=== PATIENT | male | born 1955 | race Caucasian/White ===

== ENCOUNTER 2018-03-13 21:09 | Inpatient (IN) ==
[2018-03-13] MEDS ORDERED: Diphtheria/Tetanus/Pertussis Vaccine Inj 0.5 ML Syringe IM ONE (21:19)
[2018-03-13 21:29] LABS: Baso % (Auto) 0.3 % (0.0-2.0); Eos # (Auto) 0.1 th/mm3 (0.0-0.4); Eos % (Auto) 0.9 % (0.0-4.0); Hematocrit 42.9 % (39.0-51.0); Hemoglobin 14.8 gm/dL (13.0-17.0); Lymph # (Auto) 7.1 th/mm3 (1.0-4.8); Lymph % (Auto) 48.5 % (9.0-44.0); Mean Corpuscular HGB Conc 34.5 % (32.0-36.0); Mean Corpuscular Hemoglobin 32.9 pg (27.0-34.0); Mean Corpuscular Volume 95.4 fL (80.0-100.0); Mean Platelet Volume 7.1 fL (7.0-11.0); Mono # (Auto) 1.2 th/mm3 (0.0-0.9); Mono % (Auto) 8.5 % (0.0-8.0); Neut # (Auto) 6.1 th/mm3 (1.8-7.7); Neut % (Auto) 41.8 % (16.0-70.0); Platelet Count 233 th/mm3 (150-450); Red Blood Count 4.49 mil/mm3 (4.50-5.90); Red Cell Distribution Width 13.9 % (11.6-17.2); White Blood Count 14.5 th/mm3 (4.0-11.0)
[2018-03-13 21:40] LABS: Activated Partial Thrombo Time 24.7 sec (24.3-30.1); INR 1.2 Ratio; Prothrombin Time 12.1 sec (9.8-11.6)
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
[2018-03-13] MEDS ORDERED: Naloxone Inj 0.4 MG/ML Vial IV.PUSH PRN (21:44)
[2018-03-13] MEDS ORDERED: Bisacodyl 10 MG Supp RECTAL PRN (21:44)
[2018-03-13] MEDS ORDERED: Post-op Orders (for Pharmacy) OTHER ONE (21:44)
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
[2018-03-13 21:59] LABS: Lymphocytes 47 % (9-44); Monocytes 8 % (0-8); Platelet Estimate Normal (Normal); Platelet Morphology Normal (Normal); RBC Morphology Normal (Normal)
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
[2018-03-14] MEDS ORDERED: Etomidate Inj 40 MG/20 ML Vial IV.PUSH ONE (00:28)
[2018-03-14] MEDS ORDERED: Succinylcholine Inj 200 MG/10 ML Vial ONE (00:28)
[2018-03-14] MEDS ORDERED: Propofol 1000 mg/100 ml Inj 1,000 MG/100 ML BOTTLE ONE (02:58)
[2018-03-14 05:26] LABS: Baso % (Auto) 0.1 % (0.0-2.0); Eos % (Auto) 0.1 % (0.0-4.0); Hematocrit 35.8 % (39.0-51.0); Hemoglobin 12.4 gm/dL (13.0-17.0); Lymph # (Auto) 2.8 th/mm3 (1.0-4.8); Lymph % (Auto) 20.5 % (9.0-44.0); Mean Corpuscular HGB Conc 34.5 % (32.0-36.0); Mean Corpuscular Hemoglobin 32.8 pg (27.0-34.0); Mean Corpuscular Volume 94.9 fL (80.0-100.0); Mean Platelet Volume 7.6 fL (7.0-11.0); Mono # (Auto) 2.2 th/mm3 (0.0-0.9); Neut # (Auto) 8.5 th/mm3 (1.8-7.7); Neut % (Auto) 63.3 % (16.0-70.0); Platelet Count 204 th/mm3 (150-450); Red Blood Count 3.77 mil/mm3 (4.50-5.90); White Blood Count 13.5 th/mm3 (4.0-11.0)
[2018-03-14 05:46] LABS: Carbon Dioxide 23.8 meq/L (21.0-32.0); Potassium 4.2 meq/L (3.5-5.1)
[2018-03-14] MEDS ORDERED: Sodium Chlor 0.9% Inj 500 ML IV.SIG SCH (06:00)
[2018-03-14] MEDS: Sod Chloride 0.9% Inj 1,000 ML IV.CONT SCH ×3 (06:45→19:33)
[2018-03-14] MEDS ORDERED: Acetaminophen 325 MG Tablet PO PRN (07:01)
--- NOTE | 2018-03-14 10:02 | P.DCO ---
- Physical Therapy Order: Evaluate and treat, Improve ambulation, Strength and gait training - Home Health Nursing Order: Nursing assessment with vital signs - Certification I have seen patient Tomer Diaz on 03/14/18. My clinical findings support the need for the requested home health care services because: Limited mobility due to disease progression I certify that my clinical findings support that this patient is homebound because: Unsteady gait/balance
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
[2018-03-14] MEDS: Senna/Docusate Sodium 8.6/50 MG Tablet PO SCH ×2 (12:31→21:10)
[2018-03-14] MEDS: Famotidine 20 MG Tablet PO SCH ×2 (12:31→21:10)
[2018-03-14] MEDS: FLUoxetine 20 MG Capsule PO SCH (12:32)
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
[2018-03-14] MEDS ORDERED: traZODone 100 MG Tablet PO SCH (21:00)
[2018-03-14 21:23] VITALS: RESP 18
[2018-03-15] MEDS: Sod Chloride 0.9% Inj 1,000 ML IV.CONT SCH (02:46)
[2018-03-15 05:24] VITALS: O2SAT 96
[2018-03-15 08:14] VITALS: BP 149/96; PULSE 115; TEMP 98
[2018-03-15] MEDS: FLUoxetine 20 MG Capsule PO SCH (09:06)
[2018-03-15] MEDS: Senna/Docusate Sodium 8.6/50 MG Tablet PO SCH (09:07)
[2018-03-15] MEDS: Famotidine 20 MG Tablet PO SCH (09:07)
--- NOTE | 2018-03-15 21:43 | ECG ---
Date Performed: 03/14/2018 Time Performed: 11:53:19 PTAGE: 89 years EKG: Sinus rhythm NORMAL ECG INTERPRETATION BASED ON A DEFAULT AGE OF 80 YEARS NO PREVIOUS TRACING DOCTOR: Layo Holm Interpretating Date/Time 03/15/2018 21:42:00
== END 2018-03-15 15:00 | disposition home health service (06) ==
LOC: NEDA 21:09 → NEPI 21:09 → OBSVTOIN 03-14 05:54 → N06 03-14 07:35
PROVIDERS: ADMIT Surgery; ATTEND Surgery

== ENCOUNTER 2018-03-15 20:04 | Inpatient (IN) ==
[2018-03-15] MEDS ORDERED: Acetaminophen 325 MG Tablet PO ONE (20:32)
[2018-03-15] MEDS ORDERED: Sodium Chlor 0.9% Inj 500 ML IV.SIG SCH (21:00)
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
[2018-03-15 21:25] LABS: Baso % (Auto) 0.5 % (0.0-2.0); Eos % (Auto) 0.1 % (0.0-4.0); Hematocrit 29.1 % (39.0-51.0); Hemoglobin 10.3 gm/dL (13.0-17.0); Lymph # (Auto) 0.9 th/mm3 (1.0-4.8); Mean Corpuscular HGB Conc 35.3 % (32.0-36.0); Mean Corpuscular Hemoglobin 33.6 pg (27.0-34.0); Mean Corpuscular Volume 95.3 fL (80.0-100.0); Mean Platelet Volume 7.8 fL (7.0-11.0); Mono # (Auto) 0.9 th/mm3 (0.0-0.9); Mono % (Auto) 9.3 % (0.0-8.0); Neut # (Auto) 8.1 th/mm3 (1.8-7.7); Neut % (Auto) 81.1 % (16.0-70.0); Platelet Count 215 th/mm3 (150-450); Red Blood Count 3.05 mil/mm3 (4.50-5.90); Red Cell Distribution Width 14.1 % (11.6-17.2)
[2018-03-15 21:48] LABS: Albumin 3.8 g/dL (3.4-5.0); Anion Gap 11 meq/L (5-15); Aspartate Aminotransferase 26 U/L (15-37); Blood Urea Nitrogen 20 mg/dL (7-18); Calcium 8.7 mg/dL (8.5-10.1); Carbon Dioxide 22.8 meq/L (21.0-32.0); Chloride 101 meq/L (98-107); Glomerular Filtration Rate 36 mL/min (>89); Glucose,Random 149 mg/dL (74-106); Potassium 3.8 meq/L (3.5-5.1); Sodium 135 meq/L (136-145)
[2018-03-15 21:50] LABS: Alanine Aminotransferase 24 U/L (12-78)
[2018-03-15 21:58] LABS: Alkaline Phosphatase 49 U/L (45-117); Total Protein 7.3 g/dL (6.4-8.2)
[2018-03-16 02:09] LABS: Activated Partial Thrombo Time 19.5 sec (24.3-30.1); INR 1.2 Ratio; Prothrombin Time 11.9 sec (9.8-11.6)
[2018-03-16] MEDS ORDERED: LORazepam 1 MG Tablet PO PRN (19:29)
[2018-03-16] MEDS ORDERED: Aluminum/Magnesium/Simethacone Susp 30 ML UDC PO PRN (19:29)
[2018-03-17] MEDS ORDERED: Metoprolol Tartrate 50 MG Tablet PO SCH (09:00)
[2018-03-17 10:10] LABS: Calcium 8.9 mg/dL (8.5-10.1); Carbon Dioxide 25.3 meq/L (21.0-32.0); Potassium 3.3 meq/L (3.5-5.1)
[2018-03-17 10:13] LABS: Chol/HDL Ratio 2.8 Ratio; HDL Cholesterol 63.5 mg/dL (40.0-60.0)
[2018-03-17 10:19] LABS: Thyroid Stimulating Hormone 4.25 uIU/mL (0.358-3.740)
--- NOTE | 2018-03-17 11:27 | P.HPPSY ---
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 Express and informed consent means consent voluntarily given in writing, by a competent person, after sufficient explanation and disclosure of the subject matter involved to enable the person to make a knowing and willful decision without any element of force, fraud, deceit, duress, or other form of constraint or coercion. This person is 18 years of age or older, is not now known to be incompetent to consent to treatment with a guardian advocate, and does not have a health care surrogate or proxy currently making medical treatment decisions. I have found this person to be one of the following: [xxx] Competent to provide express and informed consent, as defined above, for voluntary admission to this facility and is competent to provide express and informed consent for treatment. He/she has the consistent capacity to make well reasoned, willful, and knowing decisions concerning his or her medical or mental health treatment. The person fully and consistently understands the purpose of the admission for examination/placement and is fully capable of personally exercising all rights assured under [place] Incompetent to provide express and informed consent to voluntary admission, and this is incompetent to provide express and informed consent to treatment. The person must be transferred to involuntary status and a petition for a guardian advocate filed with the Circuit Court. [] Refusing to provide express and informed consent to voluntary admission but is competent to provide express and informed consent for treatment. The person must be discharged or transferred to involuntary status. Form shall be completed within 24 hours of a person's arrival at the receiving facility and filed in the clinical record of each person: 1. Admitted on a voluntary basis 2. Permitted to provide express and informed consent to his/her own treatment 3. Allowed to transfer from involuntary to voluntary status 4. Prior to permitting a person to consent to his or her own treatment after having been previously found incompetent to consent to treatment. History of Present Illness Capacity: Has capacity History of Present Illness: Patient is a 63-year-old white male who comes to the ED voluntarily after suffering a fall a few days prior sustaining a laceration to the back of his head that was repaired there are also healing significant abrasions noted over the bridge of his nose on the dorsum of both hands. He also complained of severe depression that has been increasing over the past 2-3 weeks with multiple episodes of crying, being quite distraught, with initial middle and late insomnia, a.m. energy, decreased energy, decreased appetite with a 50-60 pound weight loss over the past year or so. There is marked anhedonia. There is decreased concentration and attention, decreased coping skills with increased irritability, though he denies voices or visions. He says he has occasional use of alcohol though he denies abusing it he denies any prior detox or rehab or legal issues related to alcohol. He states he occasionally uses marijuana that makes better. He denies other drug use. He denies other self- medication. The way he has had increased suicidal ideation related to this. At this time he would take the suicide pill if offered to him. There is significant trauma of his past history. Patient's was of alcohol abuse and committed suicide about 10 years ago patient's sister who is also alcoholic committed suicide about 2 years ago. Patient has seen a psychiatrist in the [place] area before he was hospitalized at least 3-4 times for depression about 2 years ago he did receive a course of ECT at a facility in [place] he said that did help him he is now being prescribed trazodone and Prozac and BuSpar by her PCP. He states is been in some type of communication with the ECT facility but does not remember the name of it at this time. He states she has 2 adult children who live in [place] that he has a good relationship with. He states the past 2 years she has lived with the family that he found on Juan's list he says they are okay he does have a pet dog in the house. He also states there is significant history of perhaps asthma stating that a few years ago he wound up in the hospital with a tracheostomy that he was essentially unconscious for almost a month. The cannot identify the specific cause of it. This admission blood alcohol level was negative there is been no urine toxicology received yet. At this time patient does meet criteria for further inpatient psychiatric hospitalization and assessment. I feel he does have capacity to be maintained on a voluntary basis. We will the counselor work with the patient to identify the prior ECT facility we need to contact them. Perhaps a transferred to that facility course of ECT might be the best choice for this man. Otherwise we will continue his medication per the EMR. Patient states she has been off his medication for at least 5 or 6 days a week. We will the hospitalist consult will us also. - Inpatient Certification I certify that the inpatient services were ordered in accordance with Medicare regulations governing the order. This includes certification that hospital inpatient services are reasonable and necessary and in the case of services not specified as inpatient-only under 42 CFR 419.22(n), that they are appropriately provided as inpatient services in accordance to with the 2-midnight benchmark under 43 CFR 412.3(e) I certify that inpatient psychiatric hospital services are medically necessary. Evaluation and treatment and/or diagnostic testing are expected to improve the patient's condition. The patient needs on a daily basis, active treatment furnished directly by or requiring the supervision of inpatient psychiatric facility personnel. Estimated Total Length of Stay (Days): 5 Plans for Post Hospital Care: Not yet determined Review of Systems History of asthma PMFSH - History History Provided By: Patient, Medical Record - Tobacco History Second Hand Smoke Exposure: No Tobacco Use In Past 30 Days: No Smoking Status: Former smoker Tobacco Type: Cigarettes - Alcohol History How Often Do You Have a Drink Containing Alcohol: 2 to 3 times a week - Substance Use History Substance History: Active Abuse - Substance Use Type Marijuana Status: Active Route Used: Inhalation Reason for Use: Calm Down - Travel History Recent Travel in the USA Within the Last 8 Weeks: No Recent Travel Out of the Country Within the Last 8 Weeks: No - Immunization History Tetanus Immunization: <5 Years Hx Influenza Vaccine This Season: No Quality Measures - Psychiatric History Psychological trauma history: Patient's committed suicide about 10 years ago patient's sister suicide about 2 years ago Violence risk to others in the last 6 months: Low Violence risk to self in the last 6 months: High risk for suicide - Substance Abuse History Drug or alcohol use in the past 12 months: Patient states occasional use of alcohol and marijuana - Patient Strengths Patient's strengths (minimum of 2): Patient verbal able access healthcare calm and cooperative Medications and Allergies Active Medications: Active Medications Acetaminophen (Tylenol) 650 mg PO Q4H PRN PRN Reason: Pain 1-5 or Temp >101F Al Hydrox/Mg Hydrox/Simethicone (Mag-Al Plus Susp Liq) 30 ml PO Q6H PRN PRN Reason: DYSPEPSIA Al Hydroxide/Mg Hydroxide (Milk Of Magnesia Liq) 30 ml PO DAILY PRN PRN Reason: CONSTIPATION Al Hydroxide/Mg Hydroxide (Milk Of Magnesia Liq) 30 ml PO Q12H PRN PRN Reason: Mild Constipation Apixaban (Eliquis) 5 mg PO DAILY [facility] Last Admin: 03/17/18 09:33 Dose: 5 mg Diphenhydramine HCl (Benadryl) 50 mg PO HS PRN PRN Reason: INSOMNIA Hydroxyzine HCl (Atarax) 50 mg PO Q6H PRN PRN Reason: ANXIETY Sodium Chloride (Ns Inj) 500 mls @ 0 mls/hr IV.SIG BOLUS [facility] Metoprolol Tartrate (Lopressor) 50 mg PO DAILY [facility] Last Admin: 03/17/18 09:33 Dose: 50 mg Non-Formulary Medication (Buspirone) 5 mg PO TID [facility] Non-Formulary Medication (Eliquis) 5 mg PO DAILY [facility] Non-Formulary Medication (Haldol) 2.5 mg PO DAILY [facility] Non-Formulary Medication (Lopressor) 50 mg PO DAILY [facility] Non-Formulary Medication (Prozac) 40 mg PO DAILY [facility] Non-Formulary Medication (Trazodone) 200 mg PO HS [facility] Non-Formulary Medication (Ventolin Hfa) 90 mcg PO Q3H PRN PRN Reason: Dyspnea Allergies Allergy/AdvReac Type Severity Reaction Status Date / Time No Known Allergies Allergy Unverified 03/15/18 20:18 Home Medications Medication Instructions Recorded Confirmed Type Eliquis 5 mg PO DAILY 03/16/18 03/16/18 History Haldol 2.5 mg PO DAILY 03/16/18 03/16/18 History Lopressor 50 mg PO DAILY 03/16/18 03/16/18 History Pepcid 20 mg PO BID 03/16/18 03/16/18 History Prozac 40 mg PO DAILY 03/16/18 03/16/18 History Ventolin HFA 90 mcg PO Q3H PRN 03/16/18 03/16/18 History buspirone 5 mg PO TID 03/16/18 03/16/18 History trazodone 200 mg PO HS 03/16/18 03/16/18 History Results - Labs CBC & Chem 7: 03/15/18 21:00 03/17/18 08:19 Labs: Laboratory Results - last 24 hr 03/17/18 08:19 Sodium 140 Potassium 3.3 L Chloride 104 Carbon Dioxide 25.3 Anion Gap 11 BUN 18 Creatinine 1.61 H Estimated GFR 44 L Random Glucose 125 H Calcium 8.9 Triglycerides 109 Cholesterol 178 LDL Cholesterol, Calc 93 HDL Cholesterol 63.5 H Cholesterol/HDL Ratio 2.80 TSH 4.250 H Exam Vital signs: Vital Signs 03/16/18 20:13 03/17/18 06:14 Temperature 98.3 F 98.1 F Pulse Rate 104 H 100 H Respiratory Rate 17 18 Blood Pressure 146/70 H 144/76 H Pulse Oximetry 96 95 Intake & Output 03/16/18 03/17/18 03/17/18 18:59 06:59 18:59 Weight 95.25 kg 86.7 kg Other: Weight On Admission 86.7 kg Narrative: Patient sitting in day room nurse. Present throughout session patient is in no acute distress, he is in no respiratory distress, no complaints of chest pain or abdominal pain. Patient moving all 4 extremities without difficulty deep healing abrasions noted over the bridge of his nose" torsion of right and left hand Mental Status Examination Appearance: Appropriate, Disheveled Consciousness: Alert Orientation: Person, Place, Date/Time, Situation Motor Activity: Normal gait Speech: Unremarkable ('Some sobbing hesitancy) Language: Adequate Fund of Knowledge: Adequate Attention and Concentration: Easily distracted Memory: Unremarkable Mood: Sad (And somewhat melancholic) Affect: Other (Increased range and intensity) Thought Process & Associations: Intact Thought Content: Appropriate Hallucination Type: None Delusion Type: None Suicidal Ideation: Yes (Patient would take the suicide pill) Suicidal Plan: Yes (Patient would take the suicide pill) Suicidal Intention: Yes Homicidal Ideation: No Homicidal Plan: No Homicidal Intention: No Insight: Fair Judgment: Poor Assessment and Plan - Assessment (1) Severe recurrent major depression without psychotic features Code(s): F33.2 - Major depressive disorder, recurrent severe without psychotic features Status: Acute - Plan Plan: Estimated LOS: [] days Patient remains severely depressed and suicidal continue medications per the med reconciliation since she has been off of them for 5-6 days. We will have counselor attempt to locate facility your patient had ECT Fel[place] Justification for Continued Inpatient Stay: At this time patient would decompensate a place to a lower level of care Discharge Planning: To be determined Request Healthcare Surrogate/Guardian Advocate?: No
--- NOTE | 2018-03-17 13:07 | ECG ---
Date Performed: 03/17/2018 Time Performed: 09:26:48 PTAGE: 63 years EKG: SINUS TACHYCARDIA NONSPECIFIC ST & T-WAVE ABNORMALITY ABNORMAL RHYTHM ECG PREVIOUS TRACING : 11/05/2016 15.29 DOCTOR: Surinder Shukla Interpretating Date/Time 03/17/2018 13:05:24
--- NOTE | 2018-03-17 14:24 | P.CON ---
History of Present Illness Service: Hospitalist Consult date: 03/17/18 Requesting Physician: Tomer Manzo Reason for Consult: Assist with ongoing medical management Primary Care Provider: No Primary Care Physician Chief Complaint: I passed out and I am depressed History of Present Illness: This is 63-year-old male with a past medical history significant for chronic migraines, hypertension, stage III chronic kidney disease, history of multi lobar Legionella pneumonia with ventilator dependent respiratory failure November 2016 with history of PEG tube placement and tracheostomy, history of right lower extremity DVT 2016 and depression who presented to [facility] ED for evaluation of head injury and suicidal ideation. Patient since been admitted to the inpatient psychiatric unit. Hospitalist services have been consulted to assist with ongoing medical management. Patient seen and examined. He is not a very good historian. Patient states that he fell 3 days ago and suffered a laceration to his head. Patient states he was treated at our facility as a DOEJOE. Patient states that he had no dizziness, chest pain, palpitations, nausea, vomiting or diaphoresis prior to falling. He denies tripping on anything. He states he has been eating and drinking his usual amount. He states he was walking across the room and the next thing he knew he woke up on the ground with an injury to his head. He said he was somewhat confused after he woke but denies any tongue biting or bowel or bladder incontinence. He does not have a history of seizure disorder. He denies any alcohol consumption or drug use prior to the fall. He denies any recent change in his medications. He does not know how long he was down for. At present, he denies any complaints of chest pain. He reports chronic shortness of breath associated with asthma which is unchanged. He states he has had several episodes of loose stools 3 yesterday and 2 so far today. He denies any recent antibiotic use. He denies any dysuria. Review of Systems All other systems reviewed negative except as stated in HPI PMFSH - History History Provided By: Patient, Medical Record - Medical History Medical History: Medical History (Last Updated 03/17/18 @ 14:00 by Suni Melton) Chronic kidney disease Depression History of DVT (deep vein thrombosis) Hx of migraines Legionella pneumonia Paroxysmal atrial fibrillation - Surgical History Surgical History: Surgical History (Last Updated 03/17/18 @ 13:59 by Suni Melton) Hx of tracheostomy S/P percutaneous endoscopic gastrostomy (PEG) tube placement - Family History Family History: Family History (Last Updated 03/17/18 @ 14:00 by Suni Melton) Other No significant family history - Tobacco History Second Hand Smoke Exposure: No Tobacco Use In Past 30 Days: No Smoking Status: Former smoker Tobacco Type: Cigarettes - Alcohol History How Often Do You Have a Drink Containing Alcohol: 2 to 3 times a week - Substance Use History Substance History: Active Abuse - Substance Use Type Marijuana Status: Active Route Used: Inhalation Reason for Use: Calm Down - Travel History Recent Travel in the [place] Within the Last 8 Weeks: No Recent Travel Out of the Country Within the Last 8 Weeks: No - Immunization History Tetanus Immunization: <5 Years Hx Influenza Vaccine This Season: No Medications and Allergies Active Medications: Active Medications Acetaminophen (Tylenol) 650 mg PO Q4H PRN PRN Reason: Pain 1-5 or Temp >101F Al Hydrox/Mg Hydrox/Simethicone (Mag-Al Plus Susp Liq) 30 ml PO Q6H PRN PRN Reason: DYSPEPSIA Al Hydroxide/Mg Hydroxide (Milk Of Magnesia Liq) 30 ml PO DAILY PRN PRN Reason: CONSTIPATION Al Hydroxide/Mg Hydroxide (Milk Of Magnesia Liq) 30 ml PO Q12H PRN PRN Reason: Mild Constipation Apixaban (Eliquis) 5 mg PO DAILY [facility] Last Admin: 03/17/18 09:33 Dose: 5 mg Diphenhydramine HCl (Benadryl) 50 mg PO HS PRN PRN Reason: INSOMNIA Hydroxyzine HCl (Atarax) 50 mg PO Q6H PRN PRN Reason: ANXIETY Sodium Chloride (Ns Inj) 500 mls @ 0 mls/hr IV.SIG BOLUS [facility] Metoprolol Tartrate (Lopressor) 50 mg PO DAILY [facility] Last Admin: 03/17/18 09:33 Dose: 50 mg Non-Formulary Medication (Buspirone) 5 mg PO TID [facility] Non-Formulary Medication (Eliquis) 5 mg PO DAILY [facility] Non-Formulary Medication (Haldol) 2.5 mg PO DAILY [facility] Non-Formulary Medication (Lopressor) 50 mg PO DAILY [facility] Non-Formulary Medication (Prozac) 40 mg PO DAILY [facility] Non-Formulary Medication (Trazodone) 200 mg PO HS [facility] Non-Formulary Medication (Ventolin Hfa) 90 mcg PO Q3H PRN PRN Reason: Dyspnea Allergies Allergy/AdvReac Type Severity Reaction Status Date / Time No Known Allergies Allergy Unverified 03/15/18 20:18 Home Medications Medication Instructions Recorded Confirmed Type Eliquis 5 mg PO DAILY 03/16/18 03/16/18 History Haldol 2.5 mg PO DAILY 03/16/18 03/16/18 History Lopressor 50 mg PO DAILY 03/16/18 03/16/18 History Pepcid 20 mg PO BID 03/16/18 03/16/18 History Prozac 40 mg PO DAILY 03/16/18 03/16/18 History Ventolin HFA 90 mcg PO Q3H PRN 03/16/18 03/16/18 History buspirone 5 mg PO TID 03/16/18 03/16/18 History trazodone 200 mg PO HS 03/16/18 03/16/18 History Physical Exam Vital signs: Vital Signs 03/16/18 20:13 03/17/18 06:14 Temperature 98.3 F 98.1 F Pulse Rate 104 H 100 H Respiratory Rate 17 18 Blood Pressure 146/70 H 144/76 H Pulse Oximetry 96 95 Intake & Output 03/16/18 03/17/18 03/17/18 18:59 06:59 18:59 Intake Total 360 / 360 Balance 360 / 360 Weight 95.25 kg 86.7 kg Intake: Oral 360 / 360 Other: Weight On Admission 86.7 kg Narrative: GENERAL: Well-developed well-nourished male patient in no acute distress. Awake and alert. Anxious appearing. SKIN: Warm and dry. HEAD: Normocephalic. + 7cm scalp laceration noted to the back of the head with lucy in place. +dried blood. Abrasions to both hands as well as the nose. EYES: Pupils equal and round. No scleral icterus. No injection or drainage. ENT: No nasal bleeding or discharge. Mucous membranes pink and moist. NECK: Trachea midline. CARDIOVASCULAR: Regular rate and rhythm. RESPIRATORY: No accessory muscle use. Mild wheezing noted in the right lower lung field. Breath sounds equal bilaterally. GASTROINTESTINAL: Abdomen soft, non-tender, nondistended. Hepatic and splenic margins not palpable. MUSCULOSKELETAL: Extremities without clubbing, cyanosis, or edema. No obvious deformities. NEUROLOGICAL: Awake and alert. No obvious cranial nerve deficits. Motor grossly within normal limits. Able to move all extremity spontaneously. Normal speech. PSYCHIATRIC: Depressed affect. Anxious appearing. Assessment and Plan - Plan 63-year-old male with a past medical history significant for chronic migraines, hypertension, stage III chronic kidney disease, history of multi lobar Legionella pneumonia with ventilator dependent respiratory failure November 2016 with history of PEG tube placement and tracheostomy, history of right lower extremity DVT 2016 and depression who presented to [facility] ED for evaluation of head injury and suicidal ideation. Depression Suicidal ideation -Management per psychiatric team Syncopal episode Head laceration CT head obtained in the ED shows no evidence of acute intracranial pathology -We will obtain a 2D echocardiogram -Check orthostatic blood pressure measurements -obtain carotid US -obtain EEG -obtain UDS -monitor HR -recommend holter monitor as outpatient -fall and seizure precautions -PT eval/tx Hx of paroxysmal atrial fibrillation Systolic CHF, not in acute exacerbation. Echo 2016 with EF 45-50% Hypertension Patient has no cardiac complaints -Resume on home dose of Lopressor and Eliquis -Continue to monitor heart rate and BP -monitor for signs of fluid overload CKD, stage 3 Creatinine trending down Last Cr in system was 1.21 02/09/17 Renal US unremarkable 2016 -encourage fluid intake -obtain UA -Avoid nephrotoxic agents -Monitor kidney function Hypokalemia K 3.3 -P.o. repletion ordered -Obtain mag level -Repeat BMP in a.m. Asthma, mild exacerbation -DuoNeb scheduled every 6 hours while awake 2 days -Ventolin inhaler as needed -monitor respiratory status Diarrhea -Stool studies and C. difficile ordered -monitor stooling History of multi lobar Legionella pneumonia, sepsis, VDRF with history of PEG tube placement and tracheostomy status post reversal History of right lower extremity DVT 2017 -monitor DVT prophylaxis -Patient is ambulatory Code Status: FULL Discussed Condition With: patient, nursing staff, Dr. King
[2018-03-17 15:28] LABS: Hemoglobin A1c 5.1 % (4.3-6.0)
--- NOTE | 2018-03-17 16:27 | US ---
EXAM DATE: 03/17/2018 4:22 PM EDT AGE/SEX: 63 years / Male INDICATIONS: Syncope. CLINICAL DATA: This is the patient's subsequent encounter. Patient reports that signs and symptoms h ave been present for 1 day and indicates a pain score of 0/10. MEDICAL/SURGICAL HISTORY: . Chronic kidney disease. Depression. Deep vein thrombosis. Migraines . Pneumonia. Atrial fibrillation. . Tracheostomy. Peg tube placement. COMPARISON: No prior exams available for comparison. VELOCITY PARAMETERS: ICA/CCA Ratio: Right 0.9 , Left 1.1 ICA: Right 64.6 cm/sec, Left 77.6 cm/sec CCA: Right 73.7 cm/sec, Left 72.4 cm/sec ECA: Right 65.9 cm/sec, Left 69.8 cm/sec Vertebral: Right 55.9 cm/sec antegrade, Left 55.7 cm/sec antegrade FINDINGS: Right Carotid: No significant plaque is visualized.The waveforms are within normal limits. Left Carotid: No significant plaque is visualized. The waveforms are within normal limits. Other: None. CONCLUSION: 1. Right Internal Carotid Artery: No evidence of concerning or significant stenosis. Mild plaque is identified within the region of the carotid bulb. 2. Left Internal Carotid Artery: No evidence of significant stenosis. Mild plaque is identified with in the region of the carotid bulb. Electronically signed by: Lida Montes MD 03/17/2018 4:25 PM EDT
[2018-03-17] MEDS: FLUoxetine 20 MG Capsule PO SCH (18:03)
[2018-03-17] MEDS: traZODone 100 MG Tablet PO SCH (20:33)
[2018-03-18] MEDS: FLUoxetine 20 MG Capsule PO SCH (08:45)
[2018-03-18] MEDS: Haloperidol 1 MG Tablet PO SCH (08:46)
[2018-03-18 08:55] LABS: Calcium 8.5 mg/dL (8.5-10.1); Carbon Dioxide 27.3 meq/L (21.0-32.0); Potassium 3.5 meq/L (3.5-5.1)
[2018-03-18] MEDS ORDERED: Metoprolol Tartrate 50 MG Tablet PO SCH (09:00)
--- NOTE | 2018-03-18 11:04 | P.PN ---
Subjective Interval history: Follow-up on patient with syncopal episode, depression, suicidal ideation. Patient seen and examined. Patient complains of ongoing shortness of breath. He is not in any respiratory distress. He denies any cough or sputum production. He denies any headache or vision changes. He does report some dizziness with standing. He denies any chest pain. He denies any nausea, vomiting or abdominal pain. He states his diarrhea has resolved. Physical Exam Vital signs: Vital Signs 03/17/18 17:48 03/17/18 18:31 03/18/18 05:25 Temperature 98 F 98.4 F Pulse Rate 81 76 77 Respiratory Rate 18 17 Blood Pressure 145/63 H 105/60 Pulse Oximetry 94 L 94 L Intake & Output 03/17/18 03/18/18 03/18/18 18:59 06:59 18:59 Intake Total 600 / 600 Balance 600 / 600 Weight 91.2 kg Intake: Oral 600 / 600 Narrative: GENERAL: Well-developed well-nourished male patient in no acute distress. Awake and alert. Sitting in the day room watching TV. Appears comfortable. SKIN: Warm and dry. HEAD: Normocephalic. + 7cm scalp laceration noted to the back of the head with lucy in place. +dried blood. Abrasions to both hands as well as the nose. EYES: Pupils equal and round. No scleral icterus. No injection or drainage. ENT: No nasal bleeding or discharge. Mucous membranes pink and moist. NECK: Trachea midline. CARDIOVASCULAR: Regular rate and rhythm. RESPIRATORY: No accessory muscle use. Good air entry. Mild wheezing noted in the right lower lung field. GASTROINTESTINAL: Abdomen soft, non-tender, nondistended. +BS. MUSCULOSKELETAL: Extremities without clubbing, cyanosis, or edema. No obvious deformities. NEUROLOGICAL: Awake and alert. No obvious cranial nerve deficits. Motor grossly within normal limits. Able to move all extremity spontaneously. Normal speech. PSYCHIATRIC: Depressed affect. Calm and cooperative. Results - Labs CBC & Chem 7: 03/15/18 21:00 03/18/18 07:32 Laboratory Results - last 24 hr 03/17/18 03/17/18 03/18/18 08:19 08:19 07:32 Sodium 141 Potassium 3.5 Chloride 105 Carbon Dioxide 27.3 Anion Gap 9 BUN 16 Creatinine 1.49 H Estimated GFR 48 L Random Glucose 91 Hemoglobin A1c 5.1 Calcium 8.5 Magnesium 2.0 - Imaging Impressions Carotid Doppler Study 03/17/18 00:00 CONCLUSION: 1. Right Internal Carotid Artery: No evidence of concerning or significant stenosis. Mild plaque is identified within the region of the carotid bulb. 2. Left Internal Carotid Artery: No evidence of significant stenosis. Mild plaque is identified within the region of the carotid bulb. Assessment and Plan - Plan 63-year-old male with a past medical history significant for chronic migraines, hypertension, stage III chronic kidney disease, history of multi lobar Legionella pneumonia with ventilator dependent respiratory failure November 2016 with history of PEG tube placement and tracheostomy, history of right lower extremity DVT 2016 and depression who presented to [facility] ED for evaluation of head injury and suicidal ideation. Depression Suicidal ideation -Management per psychiatric team Syncopal episode Head laceration s/p staple closure CT head obtained in the ED shows no evidence of acute intracranial pathology Doppler shows only mild plaque -We will obtain a 2D echocardiogram -Patient c/o dizziness with standing. Hypotensive this am. Orthostatic blood pressure measurements ordered yesterday not done. -EEG pending -obtain UDS - ordered yesterday, not done -recommend holter monitor as outpatient -fall and seizure precautions -PT eval/tx Hx of paroxysmal atrial fibrillation Systolic CHF, not in acute exacerbation. Echo 2016 with EF 45-50% Hypertension, now hypotensive Patient has no cardiac complaints -Decreased dose of Lopressor 12.5 mg twice daily with hold parameters -continue patient on home dose of Eliquis -Continue to monitor heart rate and BP CKD, stage 3 Creatinine trending down Last Cr in system was 1.21 02/09/17 Renal US unremarkable 2016 -creatinine trending down -encourage fluid intake -obtain UA - specimen not sent -Avoid nephrotoxic agents -Monitor kidney function Hypokalemia K 3.3 -resolved s/p repletion -monitor K level as indicated Asthma, mild exacerbation -Obtain CXR -DuoNeb scheduled every 4 hours while awake 2 days and as needed Albuterol Nebs -Ventolin inhaler as needed -monitor respiratory status Diarrhea -Stool studies and C. difficile ordered - no specimen sent, diarrhea resolved -monitor stooling History of multi lobar Legionella pneumonia, sepsis, VDRF with history of PEG tube placement and tracheostomy status post reversal History of right lower extremity DVT 2016 -monitor DVT prophylaxis -Patient is ambulatory Code Status: FULL Discussed Condition With: patient, nursing staff, Dr. Dickerson
--- NOTE | 2018-03-18 11:55 | P.TTN ---
- Patient Problems Problems: 1. Discharge planning 2. Medication compliance 3. Knowledge deficit 4. Lack of coping skills - Progress Toward Goals Provider Present: Dr. Sugey Manzo Provider Input: Patient is new admission Psychiatric Counselors Present: Other Psychiatric Therapist Input: Patient is new admission Group Spec/RT/OT/MELENDEZ Present: BENTON Sidhu Group Spec/RT/OT/MELENDEZ Input: Patient is new admission - Discharge Plan May need placement - Documentation Teaching Recipient: Patient
--- NOTE | 2018-03-18 14:43 | MG ---
cc: Tania Cash MD EEG NUMBER: [id number] REFERRING: Referred by BREONNA Melton INDICATION: In room 2509-B with photic stimulation. Awake, drowsy asleep study. CT negative. A 63-year-old man with a history of head injury confused, depressed, suicidal, has lucy, history of depression, right lower extremity DVT, migraines, pneumonia, paroxysmal atrial fibrillation, tracheostomy, former smoker. MEDICATIONS: 1. Benadryl. 2. Prozac 3. Trazodone. DESCRIPTION OF RECORD: There is overall 8 Hz background 20-60 microvolts. Quite a bit of artifact in the frontal kirk. EKG is artifactual as well. The patient has a lot of movement, not following instruction of the technicians. May be some attenuation as the patient falls asleep then arouses and then has a fairly normal background again. Photic stimulation shows a posterior driving response. No evidence of any epileptic activity. IMPRESSION: Overall, normal appearing study without any epileptiform features. Clinical correlation. Tania Cash MD DF/ct , 02:18 PM , 02:24 PM
--- NOTE | 2018-03-18 15:53 | ECHRPT ---
Indication: Shortness of Breath CONCLUSIONS Normal left ventricular size. Wall thickness is normal. The left ventricular systolic function is normal with an estimated ejection fraction in the range of 55-60%. No regional wall motion abnormalities are present. Mild mitral valve leaflet prolapse. Trace mitral valve regurgitation. There is trace tricuspid valve regurgitation. The estimated pulmonary arterial pressure is 40 mmHg. BP: / HR: Rhythm: MEASUREMENTS (Male / Female) Normal Values Technical Quality:Good 2D ECHO LV Diastolic Diameter PLAX 4.5 cm 4.2 - 5.9 / 3.9 - 5.3 cm LV Systolic Diameter PLAX 3.4 cm IVS Diastolic Thickness 1.1 cm 0.6 - 1.0 / 0.6 - 0.9 cm LVPW Diastolic Thickness 1.1 cm 0.6 - 1.0 / 0.6 - 0.9 cm LV Relative Wall Thickness 0.5 RV Internal Dim ED PLAX 3.2 cm LVOT Diameter 2.2 cm Aortic Root Diameter 3.3 cm LA Systolic Diameter LX 4.0 cm 3.0 - 4.0 / 2.7 - 3.8 cm M-MODE AV Cusp Separation MM 2.0 cm DOPPLER AV Peak Velocity 136.0 cm/s AV Peak Gradient 7.4 mmHg LVOT Peak Velocity 102.0 cm/s LVOT Peak Gradient 4.2 mmHg AV Area Cont Eq pk 2.9 cm Mitral E Point Velocity 80.5 cm/s Mitral A Point Velocity 60.2 cm/s Mitral E to A Ratio 1.3 LV E' Lateral Velocity 14.2 cm/s Mitral E to LV E' Lateral Ratio 5.7 LV E' Septal Velocity 12.0 cm/s Mitral E to LV E' Septal Ratio 6.7 TR Peak Velocity 311.0 cm/s TR Peak Gradient 38.7 mmHg Right Atrial Pressure 10.0 mmHg Pulmonary Artery Systolic Pressu 48.7 mmHg Right Ventricular Systolic Press 48.7 mmHg PV Peak Velocity 65.6 cm/s PV Peak Gradient 1.7 mmHg FINDINGS LEFT VENTRICLE Normal left ventricular size. Wall thickness is normal. The left ventricular systolic function is normal with an estimated ejection fraction in the range of 55-60%. No regional wall motion abnormalities are present. RIGHT VENTRICLE Normal right ventricular size and systolic function. LEFT ATRIUM The left atrial size is normal. RIGHT ATRIUM The right atrial size is normal. ATRIAL SEPTUM Normal atrial septal thickness without atrial level shunting by limited color doppler interrogation. AORTA The aortic root and proximal ascending aorta are normal in size on limited imaging. MITRAL VALVE Mild mitral valve leaflet prolapse. Trace mitral valve regurgitation. AORTIC VALVE Trileaflet aortic valve. No aortic valve stenosis or regurgitation. TRICUSPID VALVE There is trace tricuspid valve regurgitation. The estimated pulmonary arterial pressure is 40 mmHg. PULMONARY VALVE Trivial pulmonary valve regurgitation. VESSELS The inferior vena cava is normal in size. PERICARDIUM No pericardial effusion. Layo Holm MD (Electronically Signed) Final Date:18 March 2018 15:52
--- NOTE | 2018-03-18 16:16 | XR ---
EXAM DATE: 03/18/2018 4:04 PM EDT AGE/SEX: 63 years / Male INDICATIONS: Dyspnea CLINICAL DATA: This is the patient's initial encounter. Patient reports that signs and symptoms have been present for 3 days and indicates a pain score of 0/10. MEDICAL/SURGICAL HISTORY: Hypertension. asthma None. COMPARISON: [facility] [place] 02/09/2017. . FINDINGS: AP view of the thorax demonstrates a curvilinear area of parenchymal density involving the right lowe r lobe. This corresponds in location with an area of previously noted confluent airspace opacity and likely represents residual scar. The lungs are otherwise clear. Heart size is normal. Pulmonary vascu lature is normal. No evidence of pneumothorax. CONCLUSION: No evidence of acute cardiopulmonary disease. Parenchymal scarring identified within the right lower lobe. Electronically signed by: Lida Montes MD 03/18/2018 4:14 PM EDT
--- NOTE | 2018-03-18 16:29 | P.PNPSY ---
Subjective Remarks: Patient seen today in day room with floor staff, chart reviewed, patient compliant medications. Patient states sleep is still somewhat disturbed, still acknowledges suicidal ideation but is able contract to do no harm. Is making somewhat better eye contact today somewhat more reactive. Though this may be a response just to the milieu and not the medication for now continue treatment Review of Systems All other systems reviewed negative except as stated in HPI Mental Status Examination Appearance: Appropriate, Disheveled Consciousness: Alert Orientation: Person, Place, Date/Time, Situation Motor Activity: Normal gait Speech: Unremarkable ('Some sobbing hesitancy) Language: Adequate Fund of Knowledge: Adequate Attention and Concentration: Easily distracted Memory: Unremarkable Mood: Sad (And somewhat melancholic) Affect: Other (Increased range and intensity) Thought Process & Associations: Intact Thought Content: Appropriate Hallucination Type: None Delusion Type: None Suicidal Ideation: Yes (Patient would take the suicide pill) Suicidal Plan: Yes (Patient would take the suicide pill) Suicidal Intention: Yes Homicidal Ideation: No Homicidal Plan: No Homicidal Intention: No Insight: Fair Judgment: Poor Assessment and Plan - Assessment (1) Severe recurrent major depression without psychotic features Code(s): F33.2 - Major depressive disorder, recurrent severe without psychotic features Status: Acute - Plan Plan: Patient remains depressed and suicidal, compliant medications, her affect is somewhat improved Justification for Continued Inpatient Stay: At this time patient would decompensate a place to a lower level of care Discharge Planning: To be determined Request Healthcare Surrogate/Guardian Advocate?: No
[2018-03-18] MEDS: traZODone 100 MG Tablet PO SCH (20:06)
[2018-03-19] MEDS: Metoprolol Tartrate 50 MG Tablet PO SCH ×2 (09:02→20:47)
[2018-03-19] MEDS: Haloperidol 1 MG Tablet PO SCH (09:04)
[2018-03-19] MEDS: FLUoxetine 20 MG Capsule PO SCH (09:05)
[2018-03-19] MEDS: Acetaminophen 325 MG Tablet PO PRN (10:10)
--- NOTE | 2018-03-19 11:43 | P.PNPSY ---
Subjective Remarks: Patient seen in day room with floor staff, chart reviewed, patient compliant medication. Patient's mood and affect seem to be improving somewhat still voices suicidal ideation and anxiety that may be somewhat contingent upon placement. He states he does not know where he will go when he leaves here. Though he is willing to consider an JAIL or some similar placement with eyes and abrasions on his nose and both upper extremities are healing of the scalp laceration is healing well no signs of infection or drainage we will increase BuSpar from 5 mg 3 times daily to 10 mg 3 times daily Review of Systems All other systems reviewed negative except as stated in HPI Mental Status Examination Appearance: Appropriate, Disheveled Consciousness: Alert Orientation: Person, Place, Date/Time, Situation Motor Activity: Normal gait Speech: Unremarkable ('Some sobbing hesitancy) Language: Adequate Fund of Knowledge: Adequate Attention and Concentration: Easily distracted Memory: Unremarkable Mood: Sad (And somewhat melancholic) Affect: Other (Increased range and intensity) Thought Process & Associations: Intact Thought Content: Appropriate Hallucination Type: None Delusion Type: None Suicidal Ideation: Yes (Patient would take the suicide pill) Suicidal Plan: Yes (Patient would take the suicide pill) Suicidal Intention: Yes Homicidal Ideation: No Homicidal Plan: No Homicidal Intention: No Insight: Fair Judgment: Poor Assessment and Plan - Assessment (1) Severe recurrent major depression without psychotic features Code(s): F33.2 - Major depressive disorder, recurrent severe without psychotic features Status: Acute - Plan Plan: Patient's depression persists but seems to be lifting somewhat though he still voices suicidality. Placement continues to be a focus of anxiety for Justification for Continued Inpatient Stay: At this time patient would decompensate a place to a lower level of care Discharge Planning: To be determined Request Healthcare Surrogate/Guardian Advocate?: No
--- NOTE | 2018-03-19 13:27 | P.PN ---
Subjective Interval history: Follow-up on patient with syncopal episode, depression, suicidal ideation. Patient seen and examined. Patient continues to have complaints of chronic shortness of breath and dizziness with standing. Orthostatic BP measurements are pending. Patient has been refusing to give urine sample. Discussed with nursing staff, no acute events noted overnight. Physical Exam Vital signs: Vital Signs 03/18/18 16:40 03/18/18 18:29 03/19/18 06:45 Temperature 98.3 F 97.8 F Pulse Rate 80 73 77 Respiratory Rate 18 17 17 Blood Pressure 107/59 L 133/58 L Pulse Oximetry 96 93 L 03/19/18 09:35 03/19/18 12:44 03/19/18 12:58 Temperature Pulse Rate 67 74 Respiratory Rate 14 18 14 Blood Pressure Pulse Oximetry Intake & Output 03/18/18 03/19/18 03/19/18 18:59 06:59 18:59 Intake Total 580 / 580 Balance 580 / 580 Intake: Oral 580 / 580 Narrative: GENERAL: Well-developed well-nourished male patient in no acute distress. Awake and alert. Appears comfortable. Not in any respiratory distress. Seated in day room watching TV. SKIN: Warm and dry. HEAD: Normocephalic. + 7cm scalp laceration noted to the back of the head with lucy in place. +dried blood. Abrasions to both hands as well as the nose. EYES: Pupils equal and round. No scleral icterus. No injection or drainage. ENT: No nasal bleeding or discharge. Mucous membranes pink and moist. NECK: Trachea midline. CARDIOVASCULAR: Regular rate and rhythm. RESPIRATORY: No accessory muscle use. Clear to auscultation. Breath sounds equal bilaterally. No wheezing noted. GASTROINTESTINAL: Abdomen soft, non-tender, nondistended. +BS. MUSCULOSKELETAL: Extremities without clubbing, cyanosis, or edema. No obvious deformities. NEUROLOGICAL: Awake and alert. No obvious cranial nerve deficits. Motor grossly within normal limits. Able to move all extremities spontaneously. Normal speech. PSYCHIATRIC: Depressed affect. Results - Labs CBC & Chem 7: 03/15/18 21:00 03/18/18 07:32 - Imaging Impressions Chest X-Ray 03/18/18 00:00 CONCLUSION: No evidence of acute cardiopulmonary disease. Parenchymal scarring identified within the right lower lobe. Assessment and Plan - Plan 63-year-old male with a past medical history significant for chronic migraines, hypertension, stage III chronic kidney disease, history of multi lobar Legionella pneumonia with ventilator dependent respiratory failure November 2016 with history of PEG tube placement and tracheostomy, history of right lower extremity DVT 2016 and depression who presented to [facility] ED for evaluation of head injury and suicidal ideation. Depression Suicidal ideation -Management per psychiatric team Syncopal episode Head laceration s/p staple closure CT head obtained in the ED shows no evidence of acute intracranial pathology 2D echocardiogram EF 55-60% no wall motion abnormalities Carotid ultrasound shows mild plaque EEG no seizure activity -orthostatic blood pressure measurements pending/discussed with nursing staff -obtain UDS -pending/patient has been refusing to give urine sample -monitor HR -recommend holter monitor as outpatient -fall and seizure precautions -PT eval/tx - pending Hx of paroxysmal atrial fibrillation Systolic CHF, not in acute exacerbation. Echo 2016 with EF 45-50% Hypertension Patient has no cardiac complaints -Continue on home dose of Lopressor and Eliquis -Continue to monitor heart rate and BP -monitor for signs of fluid overload CKD, stage 3 Creatinine trending down Last Cr in system was 1.21 02/09/17 Renal US unremarkable 2016 -encourage fluid intake -obtain UA/pending -Avoid nephrotoxic agents -Monitor kidney function Hypokalemia K 3.3 -resolved s/p repletion Asthma, mild exacerbation CXR shows parenchymal scarring right lower lobe, no acute process, images reviewed by me No wheezing noted on exam today -DuoNeb scheduled every 4 hours while awake 2 days and as needed Albuterol Nebs -Ventolin inhaler as needed -monitor respiratory status Diarrhea, resolved -unable to obtain specimen due to diarrhea resolving History of multi lobar Legionella pneumonia, sepsis, VDRF with history of PEG tube placement and tracheostomy status post reversal History of right lower extremity DVT 2016 -monitor DVT prophylaxis -Patient is ambulatory Code Status: FULL Discussed Condition With: patient, nursing staff, Dr. Martinez
[2018-03-19 15:46] LABS: Amphetamine Screen,Urine Neg (Neg); Barbiturate Screen,Urine Neg (Neg); Cannabinoid Screen,Urine Pos (Neg); Cocaine Screen,Urine Neg (Neg)
[2018-03-19 15:58] LABS: Opiate Screen,Urine Neg (Neg)
[2018-03-19] MEDS: traZODone 100 MG Tablet PO SCH (20:47)
[2018-03-20] MEDS: Haloperidol 1 MG Tablet PO SCH (08:25)
[2018-03-20] MEDS: FLUoxetine 20 MG Capsule PO SCH (08:25)
[2018-03-20] MEDS: Metoprolol Tartrate 50 MG Tablet PO SCH (08:25)
[2018-03-20] MEDS: Acetaminophen 325 MG Tablet PO PRN ×2 (14:15→18:04)
--- NOTE | 2018-03-20 18:13 | P.PNPSY ---
Subjective Remarks: Reviewed electronic medical records and discussed case with staff. Follow-up was conducted in day room with a VALENTINA moon present. When asked how he is feeling he states "not good". He reports that he is depressed and has a headache. He states that he slept "so-so" last night and his appetite has not been very good. He does endorse suicidal ideation at baseline. He denies any side effects from the medication. His mood is depressed and his affect is flat. Mental Status Examination Appearance: Appropriate, Disheveled Consciousness: Alert Orientation: Person, Place, Date/Time, Situation Motor Activity: Normal gait Speech: Unremarkable ('Some sobbing hesitancy) Language: Adequate Fund of Knowledge: Adequate Attention and Concentration: Easily distracted Memory: Unremarkable Mood: Sad (And somewhat melancholic) Affect: Other (Increased range and intensity) Thought Process & Associations: Intact Thought Content: Appropriate Hallucination Type: None Delusion Type: None Suicidal Ideation: Yes (Patient would take the suicide pill) Suicidal Plan: Yes (Patient would take the suicide pill) Suicidal Intention: Yes Homicidal Ideation: No Homicidal Plan: No Homicidal Intention: No Insight: Fair Judgment: Poor Assessment and Plan - Assessment (1) Severe recurrent major depression without psychotic features Code(s): F33.2 - Major depressive disorder, recurrent severe without psychotic features Status: Acute - Plan Plan: Patient will be reevaluated Thursday by the attending psychiatrist. Continue with current treatment plan. Justification for Continued Inpatient Stay: Moving this patient to a less restrictive environment would likely result in decompensation. Request Healthcare Surrogate/Guardian Advocate?: No
[2018-03-20 18:52] LABS: Calcium 8.8 mg/dL (8.5-10.1); Carbon Dioxide 28.6 meq/L (21.0-32.0); Potassium 4.3 meq/L (3.5-5.1)
[2018-03-20 19:14] LABS: Hematocrit 25.8 % (39.0-51.0); Hemoglobin 9.1 gm/dL (13.0-17.0); Mean Corpuscular HGB Conc 35.1 % (32.0-36.0); Mean Corpuscular Hemoglobin 33.9 pg (27.0-34.0); Mean Corpuscular Volume 96.4 fL (80.0-100.0); Mean Platelet Volume 6.7 fL (7.0-11.0); Platelet Count 279 th/mm3 (150-450); Red Blood Count 2.67 mil/mm3 (4.50-5.90); Red Cell Distribution Width 14.4 % (11.6-17.2); White Blood Count 8.2 th/mm3 (4.0-11.0)
[2018-03-20] MEDS: traZODone 100 MG Tablet PO SCH (20:53)
[2018-03-21] MEDS: Haloperidol 1 MG Tablet PO SCH (09:50)
[2018-03-21] MEDS: FLUoxetine 20 MG Capsule PO SCH (09:50)
--- NOTE | 2018-03-21 10:40 | P.PNPSY ---
Subjective Chief Complaint: Severe Major Depression without psychotic features Remarks: Reviewed electronic medical records and discussed case with staff. Follow-up was conducted in the patient's room with VALENTINA Velasquez present. Patient is complaining of a headache. He states that he continues to be depressed. He did not sleep well last night and is going to take a nap to see if the headache will subside. He did eat breakfast. His blood pressure was low this morning 94/ 51 and his cardiac medications were held. Patient states that he takes Prozac and Buspar and he hopes that they will help. Review of Systems All other systems reviewed negative except as stated in HPI Mental Status Examination Appearance: Appropriate Consciousness: Alert Orientation: Person, Place, Date/Time, Situation Motor Activity: Normal gait Speech: Unremarkable ('Some sobbing hesitancy) Language: Adequate Fund of Knowledge: Adequate Attention and Concentration: Easily distracted Memory: Unremarkable Mood: Sad (And somewhat melancholic) Affect: Flat, Blunt Thought Process & Associations: Intact Thought Content: Appropriate Hallucination Type: None Delusion Type: None Suicidal Ideation: No Suicidal Plan: No (Patient would take the suicide pill) Suicidal Intention: No Homicidal Ideation: No Homicidal Plan: No Homicidal Intention: No Insight: Fair Judgment: Poor Assessment and Plan - Assessment (1) Major depressive disorder, recurrent severe without psychotic features Code(s): F33.2 - Major depressive disorder, recurrent severe without psychotic features Status: Acute - Plan Plan: Patient will be reevaluated Thursday by the attending psychiatrist. Continue with current treatment plan. Justification for Continued Inpatient Stay: Moving patient to a less restrictive environment may result in his decompensation. Request Healthcare Surrogate/Guardian Advocate?: No
--- NOTE | 2018-03-21 14:51 | P.PN ---
Subjective Interval history: Follow-up visit head laceration, dizziness, headaches, syncopal episode. Patient seen and examined today. Reports he continues to have headaches, 03/22. He also reports dizziness. As per nursing, patient is more lethargic than usual. He also has notable tremors bilateral upper extremities and right lower extremity. Patient also complains of dizziness. Denies any change in vision. Denies pain and discomfort. Denies SOB/ dyspnea. Denies chest pain, palpitations. Denies fevers, chills, n/v/d. Denies dysuria. Physical Exam Vital signs: Vital Signs 03/20/18 16:41 03/20/18 17:14 03/20/18 17:20 Temperature 98.3 F Pulse Rate 78 88 96 H Respiratory Rate 18 18 18 Blood Pressure 84/48 L 98/57 L Pulse Oximetry 95 03/20/18 18:46 03/20/18 19:05 03/21/18 06:39 Temperature 97.6 F Pulse Rate 75 94 H Respiratory Rate 16 16 Blood Pressure 128/60 94/51 L Pulse Oximetry 93 L 03/21/18 09:41 03/21/18 09:50 03/21/18 13:10 Temperature 98.6 F Pulse Rate 94 H 81 81 Respiratory Rate 16 16 16 Blood Pressure 103/55 L Pulse Oximetry 100 03/21/18 13:24 Temperature Pulse Rate 78 Respiratory Rate 16 Blood Pressure 99/54 L Pulse Oximetry 98 Intake & Output 03/20/18 03/21/18 03/21/18 18:59 06:59 18:59 Intake Total 720 / 720 720 / 720 Balance 720 / 720 720 / 720 Intake: Oral 720 / 720 720 / 720 Other: # Voids 1 Narrative: GENERAL: This is a well-nourished, well-developed patient, in no apparent distress. SKIN: Warm and dry. HEENT: Pupils equal round and reactive. Nose without bleeding. Airway patent. Multiple scabbed areas in the head. Right side laceration with lucy intact. NECK: Trachea midline. CARDIOVASCULAR: Regular rate and rhythm without murmurs, gallops, or rubs. RESPIRATORY: Clear to auscultation. Breath sounds equal bilaterally. No wheezes , rales, or rhonchi. GASTROINTESTINAL: Abdomen soft, non-tender, nondistended. Bowel Sounds normoactive x4. MUSCULOSKELETAL: Extremities without clubbing, cyanosis, or edema. NEUROLOGICAL: Awake and alert. Moves all extremities. Normal speech. (+) Tremors RUE, LUE, RLE Results - Labs CBC & Chem 7: 03/20/18 06:14 18 06:14 Laboratory Results - last 24 hr 03/20/18 03/20/18 06:14 06:14 WBC 8.2 RBC 2.67 L Hgb 9.1 L Hct 25.8 L MCV 96.4 MCH 33.9 MCHC 35.1 RDW 14.4 Plt Count 279 MPV 6.7 L Sodium 141 Potassium 4.3 D Chloride 105 Carbon Dioxide 28.6 Anion Gap 7 BUN 19 H Creatinine 1.57 H Estimated GFR 45 L Random Glucose 103 Calcium 8.8 Assessment and Plan - Plan 63-year-old male with a past medical history significant for chronic migraines, hypertension, stage III chronic kidney disease, history of multi lobar Legionella pneumonia with ventilator dependent respiratory failure November 2016 with history of PEG tube placement and tracheostomy, history of right lower extremity DVT 2016 and depression who presented to [facility] ED for evaluation of head injury and suicidal ideation. Depression Suicidal ideation -Management per psychiatric team Syncopal episode Head laceration s/p staple closure CT head obtained in the ED shows no evidence of acute intracranial pathology 2D echocardiogram EF 55-60% no wall motion abnormalities Carotid ultrasound shows mild plaque EEG no seizure activity -recommend Holter monitor as outpatient -fall and seizure precautions -PT eval and treat -Increase dizziness, increase headache - Check repeat CT head -Meclizine for dizziness Hx of paroxysmal atrial fibrillation Systolic CHF, not in acute exacerbation. Echo 2017 with EF 45-50% Hypertension Patient has no cardiac complaints -Continue on home dose of Lopressor and Eliquis -Continue to monitor heart rate and BP CKD, stage 3 Creatinine trending down Last Cr in system was 1.21 02/09/17 Renal US unremarkable 2016 -encourage fluid intake -Avoid nephrotoxic agents -Monitor kidney function Asthma, mild exacerbation CXR shows parenchymal scarring right lower lobe, no acute process, images reviewed by me No wheezing noted on exam today -DuoNeb scheduled every 4 hours while awake 2 days and as needed Albuterol Nebs -Ventolin inhaler as needed -monitor respiratory status History of multi lobar Legionella pneumonia, sepsis, VDRF with history of PEG tube placement and tracheostomy status post reversal History of right lower extremity DVT 2017 -monitor DVT prophylaxis Eliquis Code Status: Full Code Discussed Condition With: Patient, nursing Discharge Planning: DC disposition by primary team
--- NOTE | 2018-03-21 19:13 | CT ---
EXAM DATE: 03/21/2018 7:06 PM EDT AGE/SEX: 63 years / Male INDICATIONS: Syncopal episode with fall. Headaches. CLINICAL DATA: This is the patient's initial encounter. Patient reports that signs and symptoms have been present for 1 day and indicates a pain score of 9/10. MEDICAL/SURGICAL HISTORY: None. None. RADIATION DOSE: 48.95 CTDI (mGy) COMPARISON: [facility] [place], CT HEAD W/O CONTRAST, 03/15/2018. . TECHNIQUE: CT of the head without contrast. Using automated exposure control and adjustment of the mA and/or kV according to patient size, radiation dose was kept as low as reasonably achievable to ob tain optimal diagnostic quality images. DICOM format image data is available electronically for revi ew and comparison. FINDINGS: Cerebrum: The ventricles are normal for age. No evidence of midline shift, mass lesion, hemorrhage or acute infarction. There are old small lacunar infarcts in the basal ganglia. No extraaxial fluid c ollections are seen. Posterior Fossa: The cerebellum and brainstem are intact. The 4th ventricle is midline. The cerebe llopontine angle is unremarkable. Extracranial: The visualized portion of the orbits is intact. There is stable deformity of the right maxilla likely due to remote trauma. Skull: The calvaria is intact. No evidence of skull fracture. Focal soft tissue prominence is again noted over the right parietal bone. CONCLUSION: 1. Stable appearance with no acute hemorrhage or mass effect. 2. Stable small lacunar infarcts in the basal ganglia. 3. Stable deformity of the right maxilla. 4. Focal soft tissue swelling over the high right parietal bone. . Electronically signed by: Rajiv Edmond MD 03/21/2018 7:12 PM EDT
[2018-03-21] MEDS: traZODone 100 MG Tablet PO SCH (20:46)
[2018-03-22] MEDS: Haloperidol 1 MG Tablet PO SCH (09:02)
[2018-03-22] MEDS: FLUoxetine 20 MG Capsule PO SCH (09:03)
--- NOTE | 2018-03-22 11:51 | P.PNPSY ---
Subjective Chief Complaint: Severe Major Depression without psychotic features Remarks: Patient seen in his room with nurse Laney, chart reviewed, patient compliant medication. Patient continues depressed and sad with suicidal ideation intent stating he would take the suicide pill if offered. He states Prozac had worked fairly well in the past he is unaware of ever taking any adjunctive medication to assist the Prozac. He continues to complain also of the severe headache. There is been fairly persistent throughout his stay. We will add Abilify 5 mg twice daily to his regimen internal medicine note noted appreciated and agreed with. For now continue treatment Review of Systems All other systems reviewed negative except as stated in HPI Mental Status Examination Appearance: Appropriate Consciousness: Alert Orientation: Person, Place, Date/Time, Situation Motor Activity: Normal gait Speech: Unremarkable ('Some sobbing hesitancy) Language: Adequate Fund of Knowledge: Adequate Attention and Concentration: Easily distracted Memory: Unremarkable Mood: Sad (And somewhat melancholic) Affect: Flat, Blunt Thought Process & Associations: Intact Thought Content: Appropriate Hallucination Type: None Delusion Type: None Suicidal Ideation: No Suicidal Plan: No (Patient would take the suicide pill) Suicidal Intention: No Homicidal Ideation: No Homicidal Plan: No Homicidal Intention: No Insight: Fair Judgment: Poor Assessment and Plan - Assessment (1) Severe recurrent major depression without psychotic features Code(s): F33.2 - Major depressive disorder, recurrent severe without psychotic features Status: Acute - Plan Plan: Patient continues depressed and suicidal continues to complain of headache. Internal medicine note reviewed and agreed with. We will add Abilify 5 mg twice daily and regimen Justification for Continued Inpatient Stay: At this time patient would decompensate a place to a lower level of care Discharge Planning: To be determined Request Healthcare Surrogate/Guardian Advocate?: No
[2018-03-22] MEDS: ARIPiprazole 5 MG Tablet PO SCH ×2 (15:00→21:08)
--- NOTE | 2018-03-22 15:38 | P.PN ---
Subjective Interval history: Follow-up visit head laceration, dizziness, headaches, syncopal episode. Patient seen and examined today. States he continues to have some headaches, and dizziness. As per nursing patient has been laying in bed most of the days, declines shower, declines to participate with activities. These have been discussed with patient. Convince to take a shower and sit up for at least 12 hours. Patient is agreeable. Verbalized understanding. Discussed results of CT scan of the head. Denies SOB/ dyspnea. Denies chest pain, palpitations. Denies fevers, chills, n/v/d. Physical Exam Vital signs: Vital Signs 03/21/18 18:00 03/21/18 21:46 03/22/18 05:06 Temperature 98.8 F Pulse Rate 71 Respiratory Rate 16 16 16 Blood Pressure 104/55 L Pulse Oximetry 96 03/22/18 06:18 Temperature 97.7 F Pulse Rate 80 Respiratory Rate 17 Blood Pressure 112/57 L Pulse Oximetry 95 Intake & Output 03/21/18 03/22/18 03/22/18 18:59 06:59 18:59 Intake Total 120 / 120 340 / 340 Balance 120 / 120 340 / 340 Weight 92.5 kg Intake: Oral 120 / 120 240 / 240 Oral Supplement 100 / 100 Other: # Voids 1 # Bowel Movements 0 Narrative: GENERAL: This is a well-nourished, well-developed patient, in no apparent distress. SKIN: Warm and dry. HEENT: Pupils equal round and reactive. Nose without bleeding. Airway patent. Multiple scabbed areas in the head. Right side laceration with lucy intact. NECK: Trachea midline. CARDIOVASCULAR: Regular rate and rhythm without murmurs, gallops, or rubs. RESPIRATORY: Clear to auscultation. Breath sounds equal bilaterally. No wheezes , rales, or rhonchi. GASTROINTESTINAL: Abdomen soft, non-tender, nondistended. Bowel Sounds normoactive x4. MUSCULOSKELETAL: Extremities without clubbing, cyanosis, or edema. NEUROLOGICAL: Awake and alert. Moves all extremities. Normal speech. Results - Labs CBC & Chem 7: 03/20/18 06:14 03/20/18 06:14 - Imaging Impressions Head CT 03/21/18 00:00 CONCLUSION: 1. Stable appearance with no acute hemorrhage or mass effect. 2. Stable small lacunar infarcts in the basal ganglia. 3. Stable deformity of the right maxilla. 4. Focal soft tissue swelling over the high right parietal bone. . Assessment and Plan - Plan 63-year-old male with a past medical history significant for chronic migraines, hypertension, stage III chronic kidney disease, history of multi lobar Legionella pneumonia with ventilator dependent respiratory failure November 2016 with history of PEG tube placement and tracheostomy, history of right lower extremity DVT 2016 and depression who presented to [facility] ED for evaluation of head injury and suicidal ideation. Depression Suicidal ideation -Management per psychiatric team Syncopal episode Head laceration s/p staple closure CT head obtained in the ED shows no evidence of acute intracranial pathology 2D echocardiogram EF 55-60% no wall motion abnormalities Carotid ultrasound shows mild plaque EEG no seizure activity -recommend Holter monitor as outpatient -fall and seizure precautions -PT eval and treat -Meclizine for dizziness -repeat CT head showed stable appearance with no acute hemorrhage or mass- effect. Stable small lacunar infarcts in the basal ganglia. Stable deformity of the right maxilla. Focal soft tissue swelling of the high right parietal bone -Encouraged patient to sit up, participate with activities. Continue with physical therapy. -Patient appears more depressed Hx of paroxysmal atrial fibrillation Systolic CHF, not in acute exacerbation. Echo 2017 with EF 45-50% Hypertension Patient has no cardiac complaints -Continue on home dose of Lopressor and Eliquis -Continue to monitor heart rate and BP CKD, stage 3 Creatinine trending down Last Cr in system was 1.21 02/09/17 Renal US unremarkable 2016 -encourage fluid intake -Avoid nephrotoxic agents -Monitor kidney function Asthma, mild exacerbation CXR shows parenchymal scarring right lower lobe, no acute process, images reviewed by me No wheezing noted on exam today -DuoNeb scheduled every 4 hours while awake 2 days and as needed Albuterol Nebs -Ventolin inhaler as needed -monitor respiratory status History of multi lobar Legionella pneumonia, sepsis, VDRF with history of PEG tube placement and tracheostomy status post reversal History of right lower extremity DVT 2016 -monitor DVT prophylaxis Eliquis Code Status: Full Code Discussed Condition With: Patient, nursing Discharge Planning: DC disposition by primary team
[2018-03-22] MEDS: traZODone 100 MG Tablet PO SCH (21:07)
[2018-03-23] MEDS: Haloperidol 1 MG Tablet PO SCH (09:45)
[2018-03-23] MEDS: FLUoxetine 20 MG Capsule PO SCH (09:45)
[2018-03-23] MEDS: ARIPiprazole 5 MG Tablet PO SCH (09:50)
--- NOTE | 2018-03-23 12:30 | P.PNPSY ---
Subjective Chief Complaint: Severe Major Depression without psychotic features Remarks: Patient seen in his room with floor staff, chart reviewed, patient compliant medication. Patient continues to isolate spending much time in bed. Continues depressed vaguely suicidal. Patient teared somewhat talking about family. Encouraged him to reach out to his family. We will also encourage him to get up and out of bed and spend more time in the dayroom. We will increase Abilify to 5 mg a.m. 10 mg at bedtime Review of Systems All other systems reviewed negative except as stated in HPI Mental Status Examination Appearance: Appropriate Consciousness: Alert Orientation: Person, Place, Date/Time, Situation Motor Activity: Normal gait Speech: Unremarkable ('Some sobbing hesitancy) Language: Adequate Fund of Knowledge: Adequate Attention and Concentration: Easily distracted Memory: Unremarkable Mood: Sad (And somewhat melancholic) Affect: Flat, Blunt Thought Process & Associations: Intact Thought Content: Appropriate Hallucination Type: None Delusion Type: None Suicidal Ideation: Yes (Vague ideation) Suicidal Plan: No (Patient would take the suicide pill) Suicidal Intention: No Homicidal Ideation: No Homicidal Plan: No Homicidal Intention: No Insight: Fair Judgment: Poor Assessment and Plan - Assessment (1) Severe recurrent major depression without psychotic features Code(s): F33.2 - Major depressive disorder, recurrent severe without psychotic features Status: Acute - Plan Plan: Patient remains depressed sad and isolating. She medication adjustment above. Encourage him to spend more time with the dayroom encouraged him to return to his children Justification for Continued Inpatient Stay: At this time patient would decompensate a place to a lower level of care Discharge Planning: To be determined Request Healthcare Surrogate/Guardian Advocate?: No
--- NOTE | 2018-03-23 15:59 | P.PN ---
Subjective Interval history: Follow-up visit head laceration, dizziness, headaches, syncopal episode. Patient seen and examined today. States he continues to have some headaches, and dizziness but not worsening. Sits up in chair. Denies SOB/ dyspnea. Denies chest pain, palpitations. Denies fevers, chills, n/v/d. Physical Exam Vital signs: Vital Signs 03/22/18 18:48 03/23/18 06:00 Temperature 98.3 F 98.9 F Pulse Rate 89 89 Respiratory Rate 18 15 Blood Pressure 111/52 L 107/55 L Pulse Oximetry 97 94 L Intake & Output 03/22/18 03/23/18 03/23/18 18:59 06:59 18:59 Intake Total 178 / 1780 Balance 1779 / 1779 Intake: Oral 1680 / 1680 Oral Supplement 100 / 100 Other: # Voids 1 # Bowel Movements 0 Narrative: GENERAL: This is a well-nourished, well-developed patient, in no apparent distress. SKIN: Warm and dry. HEENT: Pupils equal round and reactive. Nose without bleeding. Airway patent. Multiple scabbed areas in the head. Right side laceration with lucy intact. NECK: Trachea midline. CARDIOVASCULAR: Regular rate and rhythm without murmurs, gallops, or rubs. RESPIRATORY: Clear to auscultation. Breath sounds equal bilaterally. No wheezes , rales, or rhonchi. GASTROINTESTINAL: Abdomen soft, non-tender, nondistended. Bowel Sounds normoactive x4. MUSCULOSKELETAL: Extremities without clubbing, cyanosis, or edema. NEUROLOGICAL: Awake and alert. Moves all extremities. Normal speech. Results - Labs CBC & Chem 7: 03/20/18 06:14 03/20/18 06:14 Assessment and Plan - Plan 63-year-old male with a past medical history significant for chronic migraines, hypertension, stage III chronic kidney disease, history of multi lobar Legionella pneumonia with ventilator dependent respiratory failure November 2016 with history of PEG tube placement and tracheostomy, history of right lower extremity DVT 2016 and depression who presented to [facility] ED for evaluation of head injury and suicidal ideation. Depression Suicidal ideation -Management per psychiatric team Syncopal episode Head laceration s/p staple closure CT head obtained in the ED shows no evidence of acute intracranial pathology 2D echocardiogram EF 55-60% no wall motion abnormalities Carotid ultrasound shows mild plaque EEG no seizure activity -recommend Holter monitor as outpatient -fall and seizure precautions -PT eval and treat, eval for BPPV -Meclizine for dizziness -repeat CT head showed stable appearance with no acute hemorrhage or mass- effect. Stable small lacunar infarcts in the basal ganglia. Stable deformity of the right maxilla. Focal soft tissue swelling of the high right parietal bone -Encouraged patient to sit up, participate with activities. Continue with physical therapy. -Patient appears more depressed -[place] in the right parietal region needs to be taken out 2 weeks from placement (03/14/18) -DC 03/28 Hx of paroxysmal atrial fibrillation Systolic CHF, not in acute exacerbation. Echo 2017 with EF 45-50% Hypertension Patient has no cardiac complaints -Continue on home dose of Lopressor and Eliquis -Continue to monitor heart rate and BP CKD, stage 3 Last Cr in system was 1.21 02/09/17 Renal US unremarkable 2016 -encourage fluid intake -Avoid nephrotoxic agents -Monitor kidney function intermittently Asthma, mild exacerbation CXR shows parenchymal scarring right lower lobe, no acute process, images reviewed by me Vázquez and as needed Albuterol Nebs -Ventolin inhaler as needed -monitor respiratory status History of multi lobar Legionella pneumonia, sepsis, VDRF with history of PEG tube placement and tracheostomy status post reversal History of right lower extremity DVT 2017 -Eliquis DVT prophylaxis Eliquis Stable from Hospitalist standpoint. We will sign off. Reconsult as needed. Thank you. Code Status: Full Code Discussed Condition With: Patient, nursing Discharge Planning: DC disposition by primary team
[2018-03-23] MEDS: traZODone 100 MG Tablet PO SCH (20:47)
[2018-03-23] MEDS: ARIPiprazole 10 MG Tablet PO SCH (20:47)
[2018-03-24] MEDS: Haloperidol 1 MG Tablet PO SCH (09:08)
[2018-03-24] MEDS: ARIPiprazole 5 MG Tablet PO SCH (09:10)
[2018-03-24] MEDS: FLUoxetine 20 MG Capsule PO SCH (09:10)
[2018-03-24] MEDS: Acetaminophen 325 MG Tablet PO PRN (09:11)
--- NOTE | 2018-03-24 12:17 | P.PNPSY ---
Subjective Chief Complaint: Severe Major Depression without psychotic features Remarks: Patient seen sitting in Maryana chair in day room with nurse. Chart reviewed. Patient discussed with nurse. Patient did shower earlier his scalp wounds look clear there is no denial there is some fairly deep abrasions in that general area. His other abrasions over his face and hands are healing. Patient seen in there are no obvious expressions of pain noted with him. Though he complains of a "severe" headache. He continues to be depressed. States he would take the suicide pill if offered to him. He has not made any attempt contact with his family. We will discontinue the Tylenol and offer Motrin 600 mg every 6 as needed pain. Patient did state he had a course of ECT about 2 years ago in [place]. We will have counselor attempt to research this perhaps that might be a viable alternative for treatment for this gentleman Review of Systems All other systems reviewed negative except as stated in HPI Mental Status Examination Appearance: Appropriate Consciousness: Alert Orientation: Person, Place, Date/Time, Situation Motor Activity: Normal gait Speech: Unremarkable ('Some sobbing hesitancy) Language: Adequate Fund of Knowledge: Adequate Attention and Concentration: Easily distracted Memory: Unremarkable Mood: Sad (And somewhat melancholic) Affect: Flat, Blunt Thought Process & Associations: Intact Thought Content: Appropriate Hallucination Type: None Delusion Type: None Suicidal Ideation: Yes (Vague ideation) Suicidal Plan: No (Patient would take the suicide pill) Suicidal Intention: No Homicidal Ideation: No Homicidal Plan: No Homicidal Intention: No Insight: Fair Judgment: Poor Assessment and Plan - Assessment (1) Severe recurrent major depression without psychotic features Code(s): F33.2 - Major depressive disorder, recurrent severe without psychotic features Status: Acute - Plan Plan: This time patient remains suicidal, he states he would take the suicide pill if offered, plans of headache, we will change Tylenol to Motrin. We will also work with counselor to try to find facility patient had ECT with in [place] Justification for Continued Inpatient Stay: At this time patient would decompensate a place to a lower level of care Discharge Planning: To be determined perhaps transfer to a facility that does offer ECT Request Healthcare Surrogate/Guardian Advocate?: No
[2018-03-24] MEDS: traZODone 100 MG Tablet PO SCH (20:32)
[2018-03-24] MEDS: ARIPiprazole 10 MG Tablet PO SCH (20:32)
[2018-03-24] MEDS: Ibuprofen 600 MG Tablet PO PRN (20:32)
[2018-03-25] MEDS: ARIPiprazole 5 MG Tablet PO SCH (08:45)
[2018-03-25] MEDS: FLUoxetine 20 MG Capsule PO SCH (08:45)
[2018-03-25] MEDS: Haloperidol 1 MG Tablet PO SCH (08:45)
[2018-03-25] MEDS: Ibuprofen 600 MG Tablet PO PRN ×2 (08:46→20:44)
--- NOTE | 2018-03-25 11:00 | P.PNPSY ---
Subjective Chief Complaint: Severe Major Depression without psychotic features Remarks: Patient is seen in his room with nurse Marie, chart reviewed, patient compliant medication. Patient continues to voice suicidal ideation though his affect is slightly improved. He does deny voices at the present time. But still we will consider the suicide pill. There is some increased anxiety when talking about discharge planning and placement. Patient did acknowledge some frequent alcohol use 2-3 times per week though he states he never did it to excess. He denies any prior detox or rehab. Though he states he had at least 2 DUIs. He denies hard liquor use. He also acknowledges fairly frequent marijuana use. When reviewing his history says he has had some more frequent falls that he initially alluded to. It is been noted that some of the abrasions especially over the scalp of different ages. For now continue treatment no change Review of Systems All other systems reviewed negative except as stated in HPI Mental Status Examination Appearance: Appropriate Consciousness: Alert Orientation: Person, Place, Date/Time, Situation Motor Activity: Normal gait Speech: Unremarkable ('Some sobbing hesitancy) Language: Adequate Fund of Knowledge: Adequate Attention and Concentration: Easily distracted Memory: Unremarkable Mood: Sad (And somewhat melancholic) Affect: Flat, Blunt Thought Process & Associations: Intact Thought Content: Appropriate Hallucination Type: None Delusion Type: None Suicidal Ideation: Yes (Vague ideation) Suicidal Plan: No (Patient would take the suicide pill) Suicidal Intention: No Homicidal Ideation: No Homicidal Plan: No Homicidal Intention: No Insight: Fair Judgment: Poor Assessment and Plan - Assessment (1) Severe recurrent major depression without psychotic features Code(s): F33.2 - Major depressive disorder, recurrent severe without psychotic features Status: Acute - Plan Plan: Patient continues depressed with vague suicidal ideation. Patient did not announce perhaps greater alcohol use and first mentioned, along with marijuana use. We continue to look at trying to find ECT referral for him Justification for Continued Inpatient Stay: At this time patient would decompensate a place to a lower level of care Discharge Planning: To be determined perhaps to an ECT facility Request Healthcare Surrogate/Guardian Advocate?: No
--- NOTE | 2018-03-25 12:28 | P.TTN ---
- Patient Problems Problems: 1. Discharge planning 2. Medication compliance 3. Knowledge deficit 4. Lack of coping skills - Progress Toward Goals Provider Present: Dr. Sugey Manzo Provider Input: Patient meets criteria, depressed, may need placement Psychiatric Counselors Present: Other Psychiatric Therapist Input: Patient is mostly disengaged , depressed Group Spec/RT/OT/MELENDEZ Present: Monica Fraser, GPS, Wilmer Last, OT Group Spec/RT/OT/MELENDEZ Input: Patient does not attend groups - Discharge Plan May need placement - Documentation Teaching Recipient: Patient
[2018-03-25] MEDS: ARIPiprazole 10 MG Tablet PO SCH (20:44)
[2018-03-25] MEDS: traZODone 100 MG Tablet PO SCH (20:45)
[2018-03-26] MEDS: FLUoxetine 20 MG Capsule PO SCH (09:00)
--- NOTE | 2018-03-26 09:12 | P.PNPSY ---
Subjective Chief Complaint: Severe Major Depression without psychotic features Remarks: Patient seen sitting in day room with nurse Milagro, chart reviewed, patient compliant medication. Patient continues sad with marked decreased range and intensity of his affect with poor eye contact and quiet somewhat mumbling speech. He acknowledges continued suicidal ideation, but acknowledges that he would take the suicide pill. He continues to state he had good results from ECT. We will continue to work with counselor exploring that option. For now though we will increase Abilify to 10 mg twice a day Review of Systems All other systems reviewed negative except as stated in HPI Mental Status Examination Appearance: Appropriate Consciousness: Alert Orientation: Person, Place, Date/Time, Situation Motor Activity: Normal gait Speech: Unremarkable ('Some sobbing hesitancy), Slow, Other (Quiet spoken) Language: Adequate Fund of Knowledge: Adequate Attention and Concentration: Easily distracted Memory: Unremarkable Mood: Sad (And somewhat melancholic) Affect: Flat, Blunt Thought Process & Associations: Intact Thought Content: Appropriate Hallucination Type: None Delusion Type: None Suicidal Ideation: Yes (Today states he would consider taking the suicide pill) Suicidal Plan: No (Patient would take the suicide pill) Suicidal Intention: No Homicidal Ideation: No Homicidal Plan: No Homicidal Intention: No Insight: Fair Judgment: Poor Assessment and Plan - Assessment (1) Severe recurrent major depression without psychotic features Code(s): F33.2 - Major depressive disorder, recurrent severe without psychotic features Status: Acute - Plan Plan: Patient remains severely depressed and melancholic and anhedonic with continued suicidal ideation, stating he would consider taking the suicide pill Justification for Continued Inpatient Stay: At this time patient would decompensate a place to a lower level of care Discharge Planning: To be determined continue to explore possibility of transfer to ECT facility Request Healthcare Surrogate/Guardian Advocate?: No
[2018-03-26] MEDS: ARIPiprazole 10 MG Tablet PO SCH ×2 (09:15→21:19)
[2018-03-26] MEDS: Haloperidol 1 MG Tablet PO SCH (09:15)
[2018-03-26] MEDS: traZODone 100 MG Tablet PO SCH (21:19)
[2018-03-27] MEDS: FLUoxetine 20 MG Capsule PO SCH (09:34)
[2018-03-27] MEDS: ARIPiprazole 10 MG Tablet PO SCH ×2 (09:34→21:49)
[2018-03-27] MEDS: Haloperidol 1 MG Tablet PO SCH (09:35)
--- NOTE | 2018-03-27 16:03 | P.PNPSY ---
Subjective Chief Complaint: Severe Major Depression without psychotic features Remarks: Reviewed electronic medical records and discussed case with staff. Follow-up was conducted in the milieu with VALENTINA Deshpande present. Patient reports that he has had difficulty sleeping. He states that his appetite has been "all right". He is very depressed and his affect is flat. He states that he has suicidal ideation "all the time". However he denies making a plan. Patient complains that the ibuprofen did not help his headache. I have changed him from ibuprofen to acetaminophen. Mental Status Examination Appearance: Appropriate Consciousness: Alert Orientation: Person, Place, Date/Time, Situation Motor Activity: Normal gait Speech: Unremarkable ('Some sobbing hesitancy), Slow, Other (Quiet spoken) Language: Adequate Fund of Knowledge: Adequate Attention and Concentration: Easily distracted Memory: Unremarkable Mood: Sad (And somewhat melancholic) Affect: Flat, Blunt Thought Process & Associations: Intact Thought Content: Appropriate Hallucination Type: None Delusion Type: None Suicidal Ideation: Yes (Today states he would consider taking the suicide pill) Suicidal Plan: No (Patient would take the suicide pill) Suicidal Intention: No Homicidal Ideation: No Homicidal Plan: No Homicidal Intention: No Insight: Fair Judgment: Poor Assessment and Plan - Assessment (1) Severe recurrent major depression without psychotic features Code(s): F33.2 - Major depressive disorder, recurrent severe without psychotic features Status: Acute - Plan Plan: Patient will be reevaluated Thursday by the attending psychiatrist. Continue with current treatment plan. Justification for Continued Inpatient Stay: Moving this patient to a less restrictive environment would likely result in decompensation. Request Healthcare Surrogate/Guardian Advocate?: No
[2018-03-27] MEDS ORDERED: Acetaminophen 325 MG Tablet PO PRN (16:08)
--- NOTE | 2018-03-27 16:19 | P.PNPSY ---
Subjective Chief Complaint: Severe Major Depression without psychotic features Remarks: Reviewed electronic medical records and discussed case with staff. Follow-up was conducted in the patient's room. Patient found lying in bed awake, alert and oriented 4. She reports that she is depressed because it is "my brother's birthday he 3 years ago from an overdose". States that she has been sleeping very well but that she has had a good appetite. Mental Status Examination Appearance: Appropriate Consciousness: Alert Orientation: Person, Place, Date/Time, Situation Motor Activity: Normal gait Speech: Unremarkable ('Some sobbing hesitancy), Slow, Other (Quiet spoken) Language: Adequate Fund of Knowledge: Adequate Attention and Concentration: Easily distracted Memory: Unremarkable Mood: Sad (And somewhat melancholic) Affect: Flat, Blunt Thought Process & Associations: Intact Thought Content: Appropriate Hallucination Type: None Delusion Type: None Suicidal Ideation: Yes (Today states he would consider taking the suicide pill) Suicidal Plan: No (Patient would take the suicide pill) Suicidal Intention: No Homicidal Ideation: No Homicidal Plan: No Homicidal Intention: No Insight: Fair Judgment: Poor Assessment and Plan - Assessment (1) Severe recurrent major depression without psychotic features Code(s): F33.2 - Major depressive disorder, recurrent severe without psychotic features Status: Acute - Plan Plan: Patient will be reevaluated Thursday by the attending psychiatrist. Continue with current treatment plan. Justification for Continued Inpatient Stay: Moving this patient to a less restrictive environment would likely result in decompensation. Request Healthcare Surrogate/Guardian Advocate?: No
[2018-03-27] MEDS: traZODone 100 MG Tablet PO SCH (21:49)
[2018-03-28 05:06] VITALS: RESP 16
[2018-03-28] MEDS: FLUoxetine 20 MG Capsule PO SCH (11:19)
[2018-03-28] MEDS: ARIPiprazole 10 MG Tablet PO SCH ×2 (11:20→21:30)
[2018-03-28] MEDS: Haloperidol 1 MG Tablet PO SCH (11:23)
--- NOTE | 2018-03-28 15:05 | P.PNPSY ---
Subjective Chief Complaint: Severe Major Depression without psychotic features Remarks: Reviewed electronic medical records and discussed case with staff. Follow-up was conducted in patient's room Gracie. Patient states he is very depressed. He feels that he needs ECT. He last had treatment with ECT 2 years ago and had some benefit. He has lucy in his scalp that need to be removed and the nurse has ordered a staple remover. He states that he is homeless and this is a big stressor. He is sleeping but his sleep is intermittent and he does not feel that it is restful sleep. Review of Systems All other systems reviewed negative except as stated in HPI Comments: Weed to scalp that need to be removed. Staple remover has been ordered. Mental Status Examination Appearance: Appropriate Consciousness: Alert Orientation: Person, Place, Date/Time, Situation Motor Activity: Normal gait Speech: Unremarkable ('Some sobbing hesitancy), Slow, Other (Quiet spoken) Language: Adequate Fund of Knowledge: Adequate Attention and Concentration: Easily distracted Memory: Unremarkable Mood: Sad (And somewhat melancholic) Affect: Flat, Blunt Thought Process & Associations: Intact Thought Content: Appropriate Hallucination Type: None Delusion Type: None Suicidal Ideation: Yes (Today states he would consider taking the suicide pill) Suicidal Plan: No (Patient would take the suicide pill) Suicidal Intention: No Homicidal Ideation: No Homicidal Plan: No Homicidal Intention: No Insight: Fair Judgment: Poor Assessment and Plan - Assessment (1) Major depressive disorder, recurrent severe without psychotic features Code(s): F33.2 - Major depressive disorder, recurrent severe without psychotic features Status: Acute - Plan Plan: Patient will be reevaluated Thursday by the attending psychiatrist. Continue with current treatment plan. Justification for Continued Inpatient Stay: Moving patient to a less restrictive environment may result in his decompensation. Request Healthcare Surrogate/Guardian Advocate?: No
[2018-03-28] MEDS: traZODone 100 MG Tablet PO SCH (21:30)
[2018-03-29] MEDS: FLUoxetine 20 MG Capsule PO SCH (08:52)
[2018-03-29] MEDS: Haloperidol 1 MG Tablet PO SCH (08:53)
[2018-03-29] MEDS: ARIPiprazole 10 MG Tablet PO SCH ×2 (08:57→21:18)
--- NOTE | 2018-03-29 14:29 | P.PNPSY ---
Subjective Chief Complaint: Severe Major Depression without psychotic features Remarks: Patient is seen in his room laying in bed with the covers to his children. With floor staff. Chart reviewed. Patient compliant medications. Patient continues to endorse severely depressed and melancholic and anhedonic. He would still take the suicide pill if offered. Though he is hoping we may be able to find an ECT facility for him as soon as possible counselors are looking into this at the present time also at this time we will increase Prozac to 50 mg daily Review of Systems All other systems reviewed negative except as stated in HPI Mental Status Examination Appearance: Appropriate Consciousness: Alert Orientation: Person, Place, Date/Time, Situation Motor Activity: Normal gait Speech: Unremarkable ('Some sobbing hesitancy), Slow, Other (Quiet spoken) Language: Adequate Fund of Knowledge: Adequate Attention and Concentration: Easily distracted Memory: Unremarkable Mood: Sad (And somewhat melancholic) Affect: Blunt Thought Process & Associations: Intact Thought Content: Appropriate Hallucination Type: None Delusion Type: None Suicidal Ideation: Yes (States he would take the suicide pill today) Suicidal Plan: Yes (States he would take the suicide pill today) Suicidal Intention: Yes Homicidal Ideation: No Homicidal Plan: No Homicidal Intention: No Insight: Fair Judgment: Poor Assessment and Plan - Assessment (1) Severe recurrent major depression without psychotic features Code(s): F33.2 - Major depressive disorder, recurrent severe without psychotic features Status: Acute - Plan Plan: Patient remains depressed and melancholic and suicidal see medication adjustment continue to work with counselors on finding ECT facility that will accept this man Justification for Continued Inpatient Stay: At this time patient would decompensate a place to a lower level of care Discharge Planning: Attempting to find ECT facility for this gentleman Request Healthcare Surrogate/Guardian Advocate?: No
--- NOTE | 2018-03-29 15:56 | P.TTN ---
- Patient Problems Problems: 1. Discharge planning 2. Medication compliance 3. Knowledge deficit 4. Lack of coping skills - Progress Toward Goals Provider Present: Dr. Sugey Manzo Provider Input: Patient meets criteria, depressed, may need placement. Mar 26, 2018: Transport to [facility] upon discharge, Psychiatric Counselors Present: Shari Saucedo LCSW, Dom Cordoba Jr., [facility], Estefanía Celaya, [facility], Other Psychiatric Therapist Input: Patient is mostly disengaged , depressed. 2017: New to [facility] Group Spec/RT/OT/MELENDEZ Present: BENTON Sidhu, Wilmer Last, OT Group Spec/RT/OT/MELENDEZ Input: Patient does not attend groups. Pt hasn't attended the group activities since his admission - Discharge Plan May need placement - Documentation Teaching Recipient: Patient
[2018-03-29] MEDS: traZODone 100 MG Tablet PO SCH (21:18)
[2018-03-30 05:51] VITALS: TEMP 98.4; O2SAT 93
[2018-03-30 08:58] VITALS: BP 116/55; PULSE 88
[2018-03-30] MEDS: Haloperidol 1 MG Tablet PO SCH (09:16)
[2018-03-30] MEDS: FLUoxetine 10 MG Capsule PO SCH (09:16)
[2018-03-30] MEDS: ARIPiprazole 10 MG Tablet PO SCH ×2 (09:17→21:07)
--- NOTE | 2018-03-30 16:09 | P.PNPSY ---
Subjective Chief Complaint: Severe Major Depression without psychotic features Remarks: Patient is seen today with nurse Vera, chart reviewed, patient has been accepted on the ECT service at [facility] in [place]. Patient willing to go there is excited about going there. We will attempt to make alternate arrangements for him to be discharged to that facility tomorrow 03/31. Today we will ask nursing staff to remove lucy on scalp laceration. For now continue treatment Review of Systems All other systems reviewed negative except as stated in HPI Mental Status Examination Appearance: Appropriate Consciousness: Alert Orientation: Person, Place, Date/Time, Situation Motor Activity: Normal gait Speech: Unremarkable ('Some sobbing hesitancy), Slow, Other (Quiet spoken) Language: Adequate Fund of Knowledge: Adequate Attention and Concentration: Easily distracted Memory: Unremarkable Mood: Sad (And somewhat melancholic) Affect: Blunt Thought Process & Associations: Intact Thought Content: Appropriate Hallucination Type: None Delusion Type: None Suicidal Ideation: Yes (States he would take the suicide pill today) Suicidal Plan: Yes (States he would take the suicide pill today) Suicidal Intention: Yes Homicidal Ideation: No Homicidal Plan: No Homicidal Intention: No Insight: Fair Judgment: Poor Assessment and Plan - Assessment (1) Severe recurrent major depression without psychotic features Code(s): F33.2 - Major depressive disorder, recurrent severe without psychotic features Status: Acute - Plan Plan: Patient continues depressed and suicidal though showing some increased affect knowing that he will be getting ECT treatments. Also the patient's scalp laceration lucy removed today Justification for Continued Inpatient Stay: At this time patient would decompensate if not placed in an appropriate level of care Discharge Planning: Transferred to [facility] behavioral Request Healthcare Surrogate/Guardian Advocate?: No
[2018-03-30] MEDS: traZODone 100 MG Tablet PO SCH (21:07)
[2018-03-31] MEDS: Haloperidol 1 MG Tablet PO SCH (09:07)
[2018-03-31] MEDS: FLUoxetine 10 MG Capsule PO SCH (09:09)
[2018-03-31] MEDS: ARIPiprazole 10 MG Tablet PO SCH (09:09)
--- NOTE | 2018-03-31 10:16 | P.DSPSY ---
Psychiatry Discharge Summary Inpatient Psychiatric care?: Yes Advance Directives: No Mental Health Advance Directive: No Health Care Proxy: No - Admission Admission Date: March 16, 2018 18:56 - Admission Diagnosis (1) Major depressive disorder, recurrent severe without psychotic features Code(s): F33.2 - Major depressive disorder, recurrent severe without psychotic features Brief History: Patient is a 63-year-old white male who comes to the ED voluntarily after suffering a fall a few days prior sustaining a laceration to the back of his head that was repaired there are also healing significant abrasions noted over the bridge of his nose on the dorsum of both hands. He also complained of severe depression that has been increasing over the past 2-3 weeks with multiple episodes of crying, being quite distraught, with initial middle and late insomnia, a.m. energy, decreased energy, decreased appetite with a 50-60 pound weight loss over the past year or so. There is marked anhedonia. There is decreased concentration and attention, decreased coping skills with increased irritability, though he denies voices or visions. He says he has occasional use of alcohol though he denies abusing it he denies any prior detox or rehab or legal issues related to alcohol. He states he occasionally uses marijuana that makes better. He denies other drug use. He denies other self- medication. The way he has had increased suicidal ideation related to this. At this time he would take the suicide pill if offered to him. There is significant trauma of his past history. Patient's was of alcohol abuse and committed suicide about 10 years ago patient's sister who is also alcoholic committed suicide about 2 years ago. Patient has seen a psychiatrist in the [place] area before he was hospitalized at least 3-4 times for depression about 2 years ago he did receive a course of ECT at a facility in [place] he said that did help him he is now being prescribed trazodone and Prozac and BuSpar by her PCP. He states is been in some type of communication with the ECT facility but does not remember the name of it at this time. He states she has 2 adult children who live in [place] that he has a good relationship with. He states the past 2 years she has lived with the family that he found on Juan's list he says they are okay he does have a pet dog in the house. He also states there is significant history of perhaps asthma stating that a few years ago he wound up in the hospital with a tracheostomy that he was essentially unconscious for almost a month. The cannot identify the specific cause of it. This admission blood alcohol level was negative there is been no urine toxicology received yet. At this time patient does meet criteria for further inpatient psychiatric hospitalization and assessment. I feel he does have capacity to be maintained on a voluntary basis. We will the counselor work with the patient to identify the prior ECT facility we need to contact them. Perhaps a transferred to that facility course of ECT might be the best choice for this man. Otherwise we will continue his medication per the EMR. Patient states she has been off his medication for at least 5 or 6 days a week. We will the hospitalist consult will us also. Tobacco Use In Past 30 Days: No How Often Do You Have a Drink Containing Alcohol: 2 to 3 times a week Hospital Course: Patient was admitted to a locked inpatient psychiatric unit for further evaluation and treatment. All safety precautions were maintained throughout the visit. He was followed on a daily basis by a psychiatric provider as well as being followed by counselor. He was admitted with major depressive disorder and has continued throughout his stay to have a depressed mood with that flat, depressed affect. He has been cooperative and compliant with staff as his medications have been adjusted. While inpatient his Prozac was increased to 50 mg, his BuSpar was increased to 10 mg 3 times a day, and his Abilify was increased to 10 mg with an added dose in the morning. In spite of medication adjustments his depressive disorder has proven to be quite refractory. He seems to have reached maximum benefit of inpatient admission at this facility and arrangements have been made to transfer him to [place] for ECT. Upon examination today I find the patient lying in bed awake, alert, and oriented 4. His follow-up was conducted with VALENTINA Deshpande present. He states that he is aware he is being transferred today for ECT and he is quite hopeful that this will improve his condition. He reports that he previously had ECT with good results. His mood is still depressed as is his affect. He is denying any side effects from the medication. He will be transferred from this hospital to [facility], all transportation arrangements have been made. - Discharge Discharge Date: 03/31/18 - Discharge Diagnosis (1) Major depressive disorder, recurrent severe without psychotic features Code(s): F33.2 - Major depressive disorder, recurrent severe without psychotic features Status: Acute Discharge Disposition: Psychiatric Facility - Discharge Instructions Discharge Diet: Heart Healthy Diet Activities You Can Perform: Regular- No Restrictions - Discharge Time > 30 minutes Mental Status Examination Appearance: Appropriate Consciousness: Alert Orientation: Person, Place, Date/Time, Situation Motor Activity: Normal gait Speech: Unremarkable ('Some sobbing hesitancy), Slow, Other (Quiet spoken) Language: Adequate Fund of Knowledge: Adequate Attention and Concentration: Easily distracted Memory: Unremarkable Mood: Sad (And somewhat melancholic) Affect: Blunt Thought Process & Associations: Intact Thought Content: Appropriate Hallucination Type: None Delusion Type: None Suicidal Ideation: Yes (States he would take the suicide pill today) Suicidal Plan: Yes (States he would take the suicide pill today) Suicidal Intention: Yes Homicidal Ideation: No Homicidal Plan: No Homicidal Intention: No Insight: Fair Judgment: Poor Discharge/Advance Care Plan - Results Vital Signs: Last Vital Signs Temp 98.4 F 03/30/18 05:50 Pulse 88 03/30/18 08:57 Resp 16 03/30/18 05:50 BP 116/55 L 03/30/18 08:57 Pulse Ox 93 L 03/30/18 05:50 Lab Results: Laboratory Results Hemoglobin A1c 5.1 % (4.3-6.0) 03/17/18 08:19 Triglycerides 109 mg/dL (42-150) 03/17/18 08:19 Cholesterol 178 mg/dL (120-200) 03/17/18 08:19 LDL Cholesterol, Calc 93 mg/dL (0-99) 03/17/18 08:19 HDL Cholesterol 63.5 mg/dL (40.0-60.0) H 03/17/18 08:19 TSH 4.250 uIU/mL (0.358-3.740) H 03/17/18 08:19 Summary of Procedures: None Imaging: ITS Impressions Carotid Doppler Study 03/17/18 00:00 CONCLUSION: 1. Right Internal Carotid Artery: No evidence of concerning or significant stenosis. Mild plaque is identified within the region of the carotid bulb. 2. Left Internal Carotid Artery: No evidence of significant stenosis. Mild plaque is identified within the region of the carotid bulb. Chest X-Ray 03/18/18 00:00 CONCLUSION: No evidence of acute cardiopulmonary disease. Parenchymal scarring identified within the right lower lobe. Head CT 03/21/18 00:00 CONCLUSION: 1. Stable appearance with no acute hemorrhage or mass effect. 2. Stable small lacunar infarcts in the basal ganglia. 3. Stable deformity of the right maxilla. 4. Focal soft tissue swelling over the high right parietal bone. . Pending Results: None - Medications Number of antipsychotic medications at discharge: 2 Appropriate use of more than 1 antipsychotic med: Minimum of three failed multiple trials of monotherapy - Discharge Care Plan Goals to Promote Your Health: * To prevent worsening of your condition and complications * To maintain your health at the optimal level Directions to Meet Your Goals: Take your medications as prescribed Follow your dietary instruction Follow activity as directed Keep your appointments as scheduled Take your immunizations and boosters as scheduled If your symptoms worsen call your PCP, if no PCP go to Urgent Care Center or Emergency Room For 02/02 questions related to your inpatient stay or results of tests pending at discharge, please contact PREMA Farmer at Smoking is Dangerous to Your Health. Avoid second hand smoking
== END 2018-03-31 10:45 ==
LOC: NEPE 20:04 → MERGE 03-16 18:56 → NEDA 03-16 18:56 → H250 03-16 19:58 → H260 03-26 17:52
PROVIDERS: ADMIT Psychiatry & Neurology Psychiatry; ATTEND Psychiatry & Neurology Psychiatry